=== PATIENT | female | born 1960 | race Caucasian/White ===

== ENCOUNTER 2021-03-27 12:07 | Outpatient (REF) | payer MEDICARE, MEDICAID, SELFPAY ==
[2021-03-27 12:38] LABS: Hematocrit 38.6 % (37-47); Hemoglobin 12.9 g/dl (12.0-16.0); Mean Corpuscular HGB Conc 33.4 g/dl (31.0-35.0); Mean Corpuscular Hemoglobin 30.3 pg (27.0-33.0); Mean Corpuscular Volume 90.6 fL (80-98); Mean Platelet Volume 10.1 fL (9.4-12.3); Platelet Count 255 X10*3/uL (160-400); Red Blood Count 4.26 X10*6/uL (4.20-5.50); Red Cell Distribution Width 14.4 % (11.0-16.0); White Blood Count 6.9 X10*3/uL (4.8-10.8)
[2021-03-27 13:24] LABS: Alanine Aminotransferase 13 U/L (0-31); Albumin Level 4.4 g/dL (3.5-5.0); Alkaline Phosphatase 55 U/L (39-117); Anion Gap 12 (12-20); Aspartate Amino Transferase 16 U/L (5-31); Bilirubin Total 0.3 mg/dL (0.0-1.0); Blood Urea Nitrogen 7 mg/dL (9-16); Calcium 9.5 mg/dL (8.4-10.2); Carbon Dioxide 26 mmol/L (22-29); Chloride 106 mmol/L (96-108); Cholesterol 184 mg/dL; Estimated Glomerular Filt Rate > 60; Glucose Fasting 97 mg/dL (60-99); HDL Cholesterol 48 mg/dL; LDL Cholesterol Calculated 122 mg/dl; Potassium 4.2 mmol/L (3.3-5.1); Sodium 140 mmol/L (135-145); Total Protein 6.7 g/dL (6.5-8.0); Triglycerides 73 mg/dL
[2021-03-27 13:43] LABS: TSH reflex Free T4 0.48 uIU/mL (0.32-4.0)
== END 2021-03-27 12:08 | disposition home or self-care (01) ==
LOC: HO.LAB 12:07
PROVIDERS: PCP Internal Medicine; Visit Provider Nurse Practitioner Family
DX: Z00.00 Encounter for general adult medical examination without abnormal findings (principal); Z13.1 Encounter for screening for diabetes mellitus; E78.00 Pure hypercholesterolemia, unspecified; F41.9 Anxiety disorder, unspecified
CPT/HCPCS: 36415; 80053; 80061; 84443; 85027

== ENCOUNTER 2022-12-31 08:52 | Outpatient (AMB) | payer MEDICARE, MEDICAID, SELFPAY ==
--- NOTE | 2022-12-31 08:54 | MHC.PC.OV ---
Vital Signs 12/31/22 08:56 Height 5 ft 6 in Weight 106 lb 8 oz BMI 17.2 BP 120/60 Blood Pressure Location Lt brachial Position Sitting Pulse 65 Pulse Source Pulse Oximeter Pulse Oximetry (%) 98 Oxygen Delivery Method Room Air Intake Visit Reasons: 3 month f/u Chronic conditions Intake Note: Patient is here to follow up on GERD. Closed Circuit Screen Watcher Required: No Cartridge Loader: Not Required per policy Accompanied by: Self / Same As Patient Allergies acetaminophen [From PERCOCET] Allergy (Unknown, Verified 12/31/22 08:55) RASH oxycodone [From PERCOCET] Allergy (Unknown, Verified 12/31/22 08:55) RASH Sulfa (Sulfonamide Antibiotics) [SULFA (SULFONAMIDE ANTIBIOTICS)] Allergy (Unknown, Verified 12/31/22 08:55) RASH clindamycin Allergy (Verified 12/31/22 08:55) Rash Tobacco use date assessed: 12/31/22 Dental Screening Dental Screen Date: 12/31/22 Did you have a dental visit in the last 12 months?: Yes Did you have a dental problem in the last 6 months where you did not have access to dental care?: No Was dental information given to patient?: Patient has dentist HPI 3 month f/u Chronic conditions HPI Details chronic anxiety and doing well; compliant [facility] Medical History (Updated 09/27/22 @ 09:51 by Shankar Montenegro MD) Anxiety Chronic GERD Surgical History H/O breast biopsy History of excision of lesion Family History (Updated 12/31/22 @ 08:54 by JACKY Merrill) Father Myocardial infarction Mother No problems noted. Family/Other Colon cancer Breast cancer Uterine cancer Paternal Aunt Breast cancer Social History Housing: Apartment Alcohol intake: never Patient Tobacco Use Status: Former Tobacco user e-Cigarette/Vaping Use: Never Used service: No Current occupational status: employed Current occupational exposures/hazards: No Cognitive needs: No Hearing needs: No Vision needs: No Questionnaire Thrive Questionnaire Date Thrive assessed: 09/27/22 MICHELLE-7 AMB Questionnaire MICHELLE-7 Date MICHELLE - 7 assessed: 09/27/22 Source: Developed by Drs. Sharif Keating, Kelly Torres, Hussein Britton and colleagues, with an educational nancie from [employer]. Review of Systems Const Denies chills, Denies headache(s) and Denies weight loss ENT Denies headache(s) Card Denies chest pain, Denies syncope, Denies irregular heart rhythm and Denies dyspnea Resp Denies chest congestion, Denies cough and Denies dyspnea GI Denies abdominal pain, Denies change in stool character, Denies nausea and Denies vomiting Musc Denies deformity and Denies joint swelling Neuro Denies syncope and Denies headache(s) Physical exam (Primary Care) Vital Signs: Last Vital Signs Pulse 65 12/31/22 08:56 BP 120/60 12/31/22 08:56 Pulse Ox 98 12/31/22 08:56 Oxygen Delivery Method Room Air 12/31/22 08:56 BMI result Body Mass Index 17.2 Tobacco/Smoking Status: Tobacco use Status Tobacco use date assessed 12/31/22 12/31/22 09:00 Patient Tobacco Use Status Former Tobacco user 12/31/22 09:00 e-Cigarette/Vaping Use Never Used 12/31/22 09:00 Thrive Assessment: Date of Thrive Assessment Date Thrive assessed 09/27/22 12/31/22 09:00 Const General: cooperative, comfortable and no acute distress Resp Effort & Inspection: normal respiratory effort Auscultation: clear to auscultation bilaterally Cardio Jugular venous distension: no JVD Rate: regular rate Rhythm: regular rhythm GI Inspection: Yes normal to inspection Assessment and Plan Assessment & Plan (1) Anxiety: Code(s): F41.9 - Anxiety disorder, unspecified Plan: stable; same rx Coding Level of Care Code Est Pt Level 3 (67632) Diagnoses Anxiety F41.9
[2022-12-31 08:56] VITALS: BP 120/60; PULSE 65; O2SAT 98; BMI 17.2
== END 2022-12-31 09:16 | disposition home or self-care (01) ==
PROVIDERS: Visit Provider Internal Medicine
DX: F41.9 Anxiety disorder, unspecified (principal)
CPT/HCPCS: 99213

== ENCOUNTER 2023-02-06 11:34 | Outpatient (REF) | payer MEDICARE, MEDICAID, SELFPAY ==
[2023-02-06 14:22] LABS: MANUAL DIFF FLAG NO
[2023-02-06 14:36] LABS: Basophils Absolute Auto 0.1 X10*3/uL (0.0-0.2); Basophils Percent Auto 0.8 % (0-2); Eosinophils Absolute Auto 0.1 X10*3/uL (0.0-0.4); Eosinophils Percent Auto 0.8 % (0-4); Hematocrit 37.3 % (37.0-47.0); Imm Gran Abs Auto 0.01 X10*3/uL (0.00-0.03); Imm Gran Pct Auto 0.2 % (0.0-0.4); Lymphocytes Percent Auto 33.2 % (20-40); Mean Corpuscular HGB Conc 34.9 g/dl (31.0-35.0); Mean Corpuscular Hemoglobin 31.1 pg (27.0-33.0); Mean Corpuscular Volume 89.2 fL (80.0-98.0); Mean Platelet Volume 10.6 fL (9.4-12.3); Monocytes Absolute Auto 0.4 X10*3/uL (0.1-1.2); Neutrophils Absolute Auto 3.6 x10*3/uL (2.0-8.3); Platelet Count 276 X10*3/uL (160-400); Red Blood Count 4.18 X10*6/uL (4.20-5.50); Red Cell Distribution Width 14.5 % (11.0-16.0); White Blood Count 6.1 X10*3/uL (4.8-10.8)
[2023-02-06 15:27] LABS: Alanine Aminotransferase 14 U/L (0-31); Albumin Level 4.5 g/dL (3.5-5.0); Alkaline Phosphatase 41 U/L (39-117); Anion Gap 13 (12-20); Aspartate Amino Transferase 18 U/L (5-31); Bilirubin Total 0.5 mg/dL (0.0-1.0); Blood Urea Nitrogen 3 mg/dL (9-16); Calcium 9.4 mg/dL (8.4-10.2); Carbon Dioxide 23 mmol/L (22-29); Chloride 103 mmol/L (96-108); Cholesterol 229 mg/dL; Estimated Glomerular Filt Rate > 60; Glucose Fasting 93 mg/dL (60-99); HDL Cholesterol 58 mg/dL; LDL Cholesterol Calculated 156 mg/dl; Potassium 3.5 mmol/L (3.3-5.1); Sodium 135 mmol/L (135-145); Total Protein 7.3 g/dL (6.5-8.0); Triglycerides 75 mg/dL
[2023-02-06 15:45] LABS: Thyroid Stimulating Hormone 0.59 uIU/mL (0.32-4.0)
[2023-02-07 11:44] LABS: Rubella IgG Antibody 5.34 Index; Rubeola IgG (Measles) >300.00 AU/mL
[2023-02-08 12:32] LABS: TS Negative Control Passed; TS Panel A 0; TS Panel B 0; TS Positive Control Passed; TSpotTB Negative (Negative)
== END 2023-02-06 11:35 | disposition home or self-care (01) ==
LOC: HO.WFDLDS 11:34
PROVIDERS: Visit Provider Internal Medicine
DX: Z00.00 Encounter for general adult medical examination without abnormal findings (principal); Z11.1 Encounter for screening for respiratory tuberculosis; E03.9 Hypothyroidism, unspecified; E78.5 Hyperlipidemia, unspecified; N28.9 Disorder of kidney and ureter, unspecified; D64.9 Anemia, unspecified
CPT/HCPCS: 36415; 80053; 80061; 84443; 85025; 86481; 86735; 86762; 86765

== ENCOUNTER 2023-02-15 09:46 | Outpatient (REF) | payer MEDICARE, MEDICAID, SELFPAY ==
[2023-02-16 04:13] LABS: ~Hepatitis B Surface Antibody NONREACTIVE (Nonreactive)
== END 2023-02-15 09:47 | disposition home or self-care (01) ==
LOC: HO.WFDLDS 09:46
PROVIDERS: Visit Provider Internal Medicine
DX: Z00.00 Encounter for general adult medical examination without abnormal findings (principal)
CPT/HCPCS: 36415; 86706

== ENCOUNTER 2023-05-10 08:33 | Outpatient (AMB) | payer MEDICARE, MEDICAID, SELFPAY ==
[2023-05-10 08:39] VITALS: BP 110/72; PULSE 66; O2SAT 93; BMI 16.6
--- NOTE | 2023-05-10 08:39 | MHC.PC.OV ---
Vital Signs 05/10/23 08:39 Height 5 ft 6 in Weight 103 lb BMI 16.6 BP 110/72 Blood Pressure Location Lt brachial Position Sitting Pulse 66 Pulse Source Pulse Oximeter Pulse Oximetry (%) 93 Oxygen Delivery Method Room Air Intake Visit Reasons: 4M. F/U Dry Janitor: Not Required per policy Accompanied by: Self / Same As Patient Allergies acetaminophen [From PERCOCET] Allergy (Unknown, Verified 05/10/23 08:39) RASH oxycodone [From PERCOCET] Allergy (Unknown, Verified 05/10/23 08:39) RASH Sulfa (Sulfonamide Antibiotics) [SULFA (SULFONAMIDE ANTIBIOTICS)] Allergy (Unknown, Verified 05/10/23 08:39) RASH clindamycin Allergy (Verified 05/10/23 08:39) Rash Medication List - Last Reconciled 05/10/23 by Shankar Montenegro MD compress.stocking,knee,reg,med As directed esomeprazole magnesium 40 mg PO DAILY ibuprofen 800 mg PO Q8H PRN lorazepam 1 mg PO TID PRN [lumbar pillow As directed] Tobacco use date assessed: 12/31/22 Dental Screening Dental Screen Date: 05/10/23 Did you have a dental visit in the last 12 months?: Yes Did you have a dental problem in the last 6 months where you did not have access to dental care?: No Was dental information given to patient?: Patient has dentist HPI 4M. F/U HPI Details anxiety on rx; doing well; compliant [facility] Medical History Chronic GERD Anxiety Surgical History History of excision of lesion H/O breast biopsy Family History Father Myocardial infarction Mother No problems noted. Family/Other Colon cancer Breast cancer Uterine cancer Paternal Aunt Breast cancer Social History Housing: Apartment Alcohol intake: never Patient Tobacco Use Status: Former Tobacco user e-Cigarette/Vaping Use: Never Used service: No Current occupational status: employed Current occupational exposures/hazards: No Cognitive needs: No Hearing needs: No Vision needs: No Questionnaire PHQ-9 Over the last 2 weeks, how often have you been bothered by any of the following problems? 1. Little interest or pleasure in doing things: not at all 2. Feeling down, depressed, or hopeless: several days 3. Trouble falling or staying asleep, or sleeping too much: not at all 4. Feeling tired or having little energy: not at all 5. Poor appetite or overeating: not at all 6. Feeling bad about yourself - or that you are a failure or have let yourself or your family down: not at all 7. Trouble concentrating on things, such as reading the newspaper or watching television: not at all 8. Moving or speaking so slowly that other people could have noticed. Or the opposite - being so fidgety or restless that you have been moving around a lot more than usual: not at all 9. Thoughts that you would be better off or of hurting yourself in some way: not at all Total score: 1 Depression Screening Interpretation: Negative Depression Screening Done: Yes 56160 - PHQ-9 Billing: Yes Source: Developed by Drs. Sharif Keating, Kelly Torres, Hussein Britton and colleagues, with an educational nancie from [employer]. Thrive Questionnaire Date Thrive assessed: 09/27/22 AUDIT C Alcohol Use Questionnaire (AUDIT-C) 1. How often do you have a drink containing alcohol?: Never Total Score: 0 Score Reviewed/Action Taken: Yes MICHELLE-7 AMB Questionnaire MICHELLE-7 Date MICHELLE - 7 assessed: 09/27/22 Source: Developed by Drs. Sharif Keating, Kelly Torres, Hussein Britton and colleagues, with an educational nancie from [employer]. Review of Systems Const Denies chills, Denies headache(s) and Denies weight loss ENT Denies headache(s) Card Denies chest pain, Denies syncope, Denies irregular heart rhythm and Denies dyspnea Resp Denies chest congestion, Denies cough and Denies dyspnea GI Denies abdominal pain, Denies change in stool character, Denies nausea and Denies vomiting Musc Denies deformity and Denies joint swelling Neuro Denies syncope and Denies headache(s) Physical exam (Primary Care) Vital Signs: Last Vital Signs Pulse 66 05/10/23 08:39 BP 110/72 05/10/23 08:39 Pulse Ox 93 05/10/23 08:39 Oxygen Delivery Method Room Air 05/10/23 08:39 BMI result Body Mass Index 16.6 Tobacco/Smoking Status: Tobacco use Status Tobacco use date assessed 12/31/22 05/10/23 08:42 Patient Tobacco Use Status Former Tobacco user 05/10/23 08:42 e-Cigarette/Vaping Use Never Used 05/10/23 08:42 PHQ-9: PHQ-9 Score PHQ-9: Total score 1 05/10/23 08:42 Depression Screening Interpretation: Negative Thrive Assessment: Date of Thrive Assessment Date Thrive assessed 09/27/22 05/10/23 08:42 Const General: cooperative, comfortable, no acute distress and alert Neck Neck: Yes no lymphadenopathy Thyroid: Thyroid normal Resp Effort & Inspection: normal respiratory effort Auscultation: clear to auscultation bilaterally Percussion: percussion normal Cardio Jugular venous distension: no JVD Palpation: normal PMI Rate: regular rate Rhythm: regular rhythm Heart sounds: S1 normal heart sound present and S2 normal heart sound present GI Inspection: Yes normal to inspection Palpation (GI): No hepatosplenomegaly present Skin General skin exam: no rashes or lesions noted Extrem General: Yes no clubbing, cyanosis or edema Assessment and Plan Assessment & Plan (1) Anxiety: Code(s): F41.9 - Anxiety disorder, unspecified Plan: stable; same rx Coding Level of Care Code Est Pt Level 3 (72679) Diagnoses Anxiety F41.9
== END 2023-05-10 08:57 | disposition home or self-care (01) ==
PROVIDERS: PCP Internal Medicine; Visit Provider Internal Medicine
DX: F41.9 Anxiety disorder, unspecified (principal)
CPT/HCPCS: 99213

== ENCOUNTER 2023-09-05 08:59 | Outpatient (AMB) | payer MEDICARE, MEDICAID, SELFPAY ==
[2023-09-05 09:00] VITALS: BP 114/70; PULSE 71; O2SAT 96; BMI 16.6
--- NOTE | 2023-09-05 09:00 | MHC.PC.OV ---
Vital Signs 09/05/23 09:00 Height 5 ft 6 in Weight 103 lb BMI 16.6 BP 114/70 Blood Pressure Location Lt brachial Position Sitting Pulse 71 Pulse Source Pulse Oximeter Pulse Oximetry (%) 96 Oxygen Delivery Method Room Air Intake Visit Reasons: back pain Water Technician Required: No Health Commissioner: Not Required per policy Accompanied by: Self / Same As Patient Allergies acetaminophen [From PERCOCET] Allergy (Unknown, Verified 09/05/23 09:01) RASH oxycodone [From PERCOCET] Allergy (Unknown, Verified 09/05/23 09:01) RASH Sulfa (Sulfonamide Antibiotics) [SULFA (SULFONAMIDE ANTIBIOTICS)] Allergy (Unknown, Verified 09/05/23 09:01) RASH clindamycin Allergy (Verified 09/05/23 09:01) Rash Tobacco use date assessed: 09/05/23 Dental Screening Dental Screen Date: 09/05/23 Did you have a dental visit in the last 12 months?: Yes Did you have a dental problem in the last 6 months where you did not have access to dental care?: No Was dental information given to patient?: Patient has dentist HPI back pain HPI Details lower back pain for years getting worse; left and right paralumbar PFSH Medical History Chronic GERD Anxiety Surgical History History of excision of lesion H/O breast biopsy Family History Father Myocardial infarction Mother No problems noted. Family/Other Colon cancer Breast cancer Uterine cancer Paternal Aunt Breast cancer Social History Housing: Apartment Alcohol intake: never Patient Tobacco Use Status: Former Tobacco user e-Cigarette/Vaping Use: Never Used service: No Current occupational status: employed Current occupational exposures/hazards: No Cognitive needs: No Hearing needs: No Vision needs: Yes (glasses) Questionnaire PHQ-9 Over the last 2 weeks, how often have you been bothered by any of the following problems? 1. Little interest or pleasure in doing things: not at all 2. Feeling down, depressed, or hopeless: not at all 3. Trouble falling or staying asleep, or sleeping too much: not at all 4. Feeling tired or having little energy: not at all 5. Poor appetite or overeating: not at all 6. Feeling bad about yourself - or that you are a failure or have let yourself or your family down: not at all 7. Trouble concentrating on things, such as reading the newspaper or watching television: not at all 8. Moving or speaking so slowly that other people could have noticed. Or the opposite - being so fidgety or restless that you have been moving around a lot more than usual: not at all 9. Thoughts that you would be better off or of hurting yourself in some way: not at all Total score: 0 Depression Screening Interpretation: Negative Depression Screening Done: Yes 06944 - PHQ-9 Billing: Yes Source: Developed by Drs. Sharif Keating, Kelly Torres, Hussein Britton and colleagues, with an educational nancie from [employer]. Thrive Questionnaire Date Thrive assessed: 09/05/23 I am a: Patient What is your living situation today?: I have a steady place to live Within the past 12 months, did the food you bought not last and you didn't have the money to get more?: Never true Within the past 12 months, did you worry whether your food would run out before you got money to buy more?: Never true Do you have trouble paying for medicines?: No Do you have trouble getting transportation to medical appointments?: No Do you have trouble paying your heating and electricity bill?: No Do you have trouble taking care of your child, family member or friend?: No Do you have trouble with day-to-day activities such as bathing, preparing meals, shopping, managing finances, etc.?: No Are you currently unemployed and looking for a job?: No Are you interested in more education?: No Please select the resources that you would like help with: None THRIVE Score: 0 AUDIT C Alcohol Use Questionnaire (AUDIT-C) 1. How often do you have a drink containing alcohol?: Never Total Score: 0 Score Reviewed/Action Taken: Yes MICHELLE-7 AMB Questionnaire MICHELLE-7 Date MICHELLE - 7 assessed: 09/05/23 Feeling nervous, anxious, or on edge: 0 = Not at all Not being able to stop or control worryin = Not at all Worrying too much about different things: 0 = Not at all Trouble relaxin = Not at all Being so restless that it is hard to sit still: 0 = Not at all Becoming easily annoyed or irritable: 0 = Not at all Feeling afraid as if something awful might happen: 0 = Not at all Total MICHELLE-7 score (0-4 normal; 5-9 mild; 10-14 moderate; 15-21 severe): 0 Source: Developed by Drs. Sharif Keating, Kelly Torres, Hussein Britton and colleagues, with an educational nancie from [employer]. MICHELLE-7 Assessment Billing MICHELLE-7 Assessment Tool: MICHELLE-7 Assessment 27291 Review of Systems Const Denies chills, Denies headache(s) and Denies weight loss ENT Denies headache(s) Card Denies chest pain, Denies syncope, Denies irregular heart rhythm and Denies dyspnea Resp Denies chest congestion, Denies cough and Denies dyspnea GI Denies abdominal pain, Denies change in stool character, Denies nausea and Denies vomiting Musc Denies deformity and Denies joint swelling Neuro Denies syncope and Denies headache(s) Physical exam (Primary Care) Vital Signs: Last Vital Signs Pulse 71 09/05/23 09:00 BP 114/70 09/05/23 09:00 Pulse Ox 96 09/05/23 09:00 Oxygen Delivery Method Room Air 09/05/23 09:00 BMI result Body Mass Index 16.6 Tobacco/Smoking Status: Tobacco use Status Tobacco use date assessed 09/05/23 09/05/23 09:05 Patient Tobacco Use Status Former Tobacco user 09/05/23 09:05 e-Cigarette/Vaping Use Never Used 09/05/23 09:05 PHQ-9: PHQ-9 Score PHQ-9: Total score 0 09/05/23 09:05 Depression Screening Interpretation: Negative Thrive Assessment: Date of Thrive Assessment Date Thrive assessed 09/05/23 09/05/23 09:05 Const General: cooperative, comfortable, no acute distress and alert Neck Neck: Yes no lymphadenopathy Thyroid: Thyroid normal Resp Effort & Inspection: normal respiratory effort Auscultation: clear to auscultation bilaterally Percussion: percussion normal Cardio Jugular venous distension: no JVD Palpation: normal PMI Rate: regular rate Rhythm: regular rhythm Heart sounds: S1 normal heart sound present and S2 normal heart sound present GI Inspection: Yes normal to inspection Palpation (GI): No hepatosplenomegaly present Skin General skin exam: no rashes or lesions noted Extrem General: Yes no clubbing, cyanosis or edema Assessment and Plan Assessment & Plan (1) Low back pain: Code(s): M54.50 - Low back pain, unspecified Plan: xr and pt Orders: Orders PT Evaluation and Treatment Today M54.50 - Low back pain, unspecified XR lumbar spine 2-3V Today M54.9 - Dorsalgia, unspecified Coding Level of Care Code Est Pt Level 3 (20583) Diagnoses Low back pain M54.50 Additional Codes MICHELLE-7 Assessment Billing - MICHELLE-7 Assessment Tool: MICHELLE-7 Assessment 68377 ([id number])
== END 2023-09-05 09:15 | disposition home or self-care (01) ==
PROVIDERS: PCP Internal Medicine; Visit Provider Internal Medicine
DX: M54.50 Low back pain, unspecified (principal)
CPT/HCPCS: 99213

== ENCOUNTER 2023-10-11 09:17 | Outpatient (AMB) | payer MEDICARE, MEDICAID, SELFPAY ==
[2023-10-11 09:19] VITALS: BP 130/78; PULSE 76; O2SAT 99; BMI 16.5
--- NOTE | 2023-10-11 09:19 | A.OFFPC_ITS ---
Vital Signs 10/11/23 09:19 Height 5 ft 6 in Weight 102 lb BMI 16.5 BP 130/78 Blood Pressure Location Lt brachial Position Sitting Pulse 76 Pulse Source Pulse Oximeter Pulse Oximetry (%) 99 Oxygen Delivery Method Room Air Intake Visit Reasons: X Ray results, Blood work results, Possible PT ref Senior Software Qa Engineer Required: No Felt Washing Machine Tender: Not Required per policy Accompanied by: Self / Same As Patient Allergies acetaminophen [From PERCOCET] Allergy (Unknown, Verified 10/11/23 09:20) RASH oxycodone [From PERCOCET] Allergy (Unknown, Verified 10/11/23 09:20) RASH Sulfa (Sulfonamide Antibiotics) [SULFA (SULFONAMIDE ANTIBIOTICS)] Allergy (Unknown, Verified 10/11/23 09:20) RASH clindamycin Allergy (Verified 10/11/23 09:20) Rash Medication List - Last Reconciled 10/11/23 by Shankar Montenegro MD compress.stocking,knee,reg,med As directed esomeprazole magnesium 40 mg PO DAILY ibuprofen 800 mg PO Q8H PRN lorazepam 1 mg PO TID PRN [lumbar pillow As directed] Tobacco use date assessed: 09/05/23 Dental Screening Dental Screen Date: 09/05/23 HPI X Ray results, Blood work results, Possible PT ref HPI Details low back pain due to DJD PFSH Medical History Chronic GERD Anxiety Surgical History History of excision of lesion H/O breast biopsy Family History Father Myocardial infarction Mother No problems noted. Family/Other Colon cancer Breast cancer Uterine cancer Paternal Aunt Breast cancer Social History Housing: Apartment Alcohol intake: never Patient Tobacco Use Status: Former Tobacco user e-Cigarette/Vaping Use: Never Used service: No Current occupational status: employed Current occupational exposures/hazards: No Cognitive needs: No Hearing needs: No Vision needs: Yes (glasses) Questionnaire Thrive Questionnaire Date Thrive assessed: 09/05/23 MICHELLE-7 AMB Questionnaire MICHELLE-7 Date MICHELLE - 7 assessed: 09/05/23 Source: Developed by Drs. Sharif Keating, Kelly Torres, Hussein Britton and colleagues, with an educational nancie from [employer]. Review of Systems Const Denies chills, Denies headache(s) and Denies weight loss ENT Denies headache(s) Card Denies chest pain, Denies syncope, Denies irregular heart rhythm and Denies dyspnea Resp Denies chest congestion, Denies cough and Denies dyspnea GI Denies abdominal pain, Denies change in stool character, Denies nausea and Denies vomiting Musc Denies deformity and Denies joint swelling Neuro Denies syncope and Denies headache(s) Physical exam (Primary Care) Vital Signs: Last Vital Signs Pulse 76 10/11/23 09:19 BP 130/78 10/11/23 09:19 Pulse Ox 99 10/11/23 09:19 Oxygen Delivery Method Room Air 10/11/23 09:19 BMI result Body Mass Index 16.5 Tobacco/Smoking Status: Tobacco use Status Tobacco use date assessed 09/05/23 10/11/23 09:20 Patient Tobacco Use Status Former Tobacco user 10/11/23 09:20 e-Cigarette/Vaping Use Never Used 10/11/23 09:20 Thrive Assessment: Date of Thrive Assessment Date Thrive assessed 09/05/23 10/11/23 09:20 Const General: cooperative, comfortable, no acute distress and alert Neck Neck: Yes no lymphadenopathy Thyroid: Thyroid normal Resp Effort & Inspection: normal respiratory effort Auscultation: clear to auscultation bilaterally Percussion: percussion normal Cardio Jugular venous distension: no JVD Palpation: normal PMI Rate: regular rate Rhythm: regular rhythm Heart sounds: S1 normal heart sound present and S2 normal heart sound present GI Inspection: Yes normal to inspection Palpation (GI): No hepatosplenomegaly present Skin General skin exam: no rashes or lesions noted Extrem General: Yes no clubbing, cyanosis or edema Assessment and Plan Assessment & Plan (1) Low back pain: Code(s): M54.50 - Low back pain, unspecified Plan: PT ref Orders: Orders PT Evaluation and Treatment Today M54.50 - Low back pain, unspecified Coding Level of Care Code Est Pt Level 3 (30277) Diagnoses Low back pain M54.50
== END 2023-10-11 09:35 | disposition home or self-care (01) ==
PROVIDERS: PCP Internal Medicine; Visit Provider Internal Medicine
DX: M54.50 Low back pain, unspecified (principal)
CPT/HCPCS: 99213

== ENCOUNTER 2023-12-17 09:41 | Outpatient (AMB) | payer MEDICARE, MEDICAID, SELFPAY ==
[2023-12-17 09:42] VITALS: BP 100/64; PULSE 85; O2SAT 95; BMI 16.5
--- NOTE | 2023-12-17 09:42 | A.OFFPC_ITS ---
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 Electrical: Not Required per policy Accompanied by: Self / Same As Patient Allergies acetaminophen [From PERCOCET] Allergy (Unknown, Verified 12/17/23 09:43) RASH oxycodone [From PERCOCET] Allergy (Unknown, Verified 12/17/23 09:43) RASH Sulfa (Sulfonamide Antibiotics) [SULFA (SULFONAMIDE ANTIBIOTICS)] Allergy (Unknown, Verified 12/17/23 09:43) RASH clindamycin Allergy (Verified 12/17/23 09:43) Rash Medication List - Last Reconciled 12/17/23 by Shankar Montenegro MD compress.stocking,knee,reg,med As directed esomeprazole magnesium 40 mg PO DAILY ibuprofen 800 mg PO Q8H PRN lorazepam 1 mg PO TID PRN [lumbar pillow As directed] Tobacco use date assessed: 09/05/23 Dental Screening Dental Screen Date: 09/05/23 HPI 6 month f/u HPI Details chronic anxiety; doing well; due for labs PFSH Medical History Chronic GERD Anxiety Surgical History History of excision of lesion H/O breast biopsy Family History Father Myocardial infarction Mother No problems noted. Family/Other Colon cancer Breast cancer Uterine cancer Paternal Aunt Breast cancer Social History Housing: Apartment Alcohol intake: never Patient Tobacco Use Status: Former Tobacco user e-Cigarette/Vaping Use: Never Used service: No Current occupational status: employed Current occupational exposures/hazards: No Cognitive needs: No Hearing needs: No Vision needs: Yes (glasses) Questionnaire Thrive Questionnaire Date Thrive assessed: 09/05/23 MICHELLE-7 AMB Questionnaire MICHELLE-7 Date MICHELLE - 7 assessed: 09/05/23 Source: Developed by Drs. Sharif Keating, Kelly Torres, Hussein Britton and colleagues, with an educational nancie from [employer]. Review of Systems Const Denies chills, Denies headache(s) and Denies weight loss ENT Denies headache(s) Card Denies chest pain, Denies syncope, Denies irregular heart rhythm and Denies dyspnea Resp Denies chest congestion, Denies cough and Denies dyspnea GI Denies abdominal pain, Denies change in stool character, Denies nausea and Denies vomiting Musc Denies deformity and Denies joint swelling Neuro Denies syncope and Denies headache(s) Physical exam (Primary Care) Vital Signs: Last Vital Signs Pulse 85 12/17/23 09:42 BP 100/64 12/17/23 09:42 Pulse Ox 95 12/17/23 09:42 Oxygen Delivery Method Room Air 12/17/23 09:42 BMI result Body Mass Index 16.5 Tobacco/Smoking Status: Tobacco use Status Tobacco use date assessed 09/05/23 12/17/23 09:46 Patient Tobacco Use Status Former Tobacco user 12/17/23 09:46 e-Cigarette/Vaping Use Never Used 12/17/23 09:46 Thrive Assessment: Date of Thrive Assessment Date Thrive assessed 09/05/23 12/17/23 09:46 Const General: cooperative, comfortable, no acute distress and alert Neck Neck: Yes no lymphadenopathy Thyroid: Thyroid normal Resp Effort & Inspection: normal respiratory effort Auscultation: clear to auscultation bilaterally Percussion: percussion normal Cardio Jugular venous distension: no JVD Palpation: normal PMI Rate: regular rate Rhythm: regular rhythm Heart sounds: S1 normal heart sound present and S2 normal heart sound present GI Inspection: Yes normal to inspection Palpation (GI): No hepatosplenomegaly present Skin General skin exam: no rashes or lesions noted Extrem General: Yes no clubbing, cyanosis or edema Assessment and Plan Assessment & Plan (1) Anxiety: Code(s): F41.9 - Anxiety disorder, unspecified Plan: stable; same rx Orders: Orders Complete Blood Count Auto Diff Today Z13.0 - Encounter for screening for diseases of the blood and blood-forming organs and certain disorders involving the immune mechanism Lipid Panel Today Z13.220 - Encounter for screening for lipoid disorders Thyroid Stimulating Hormone Today Z13.29 - Encounter for screening for other suspected endocrine disorder Comprehensive [place]. Panel Fast Today Z13.9 - Encounter for screening, unspecified Coding Level of Care Code Est Pt Level 3 (58615) Diagnoses Anxiety F41.9
== END 2023-12-17 10:03 | disposition home or self-care (01) ==
PROVIDERS: PCP Internal Medicine; Visit Provider Internal Medicine
DX: F41.9 Anxiety disorder, unspecified (principal)
CPT/HCPCS: 99213

== ENCOUNTER 2023-12-19 07:00 | Outpatient (RCR) | payer MEDICARE, MEDICAID, SELFPAY ==
--- NOTE | 2023-12-09 13:46 | MHC.PT.EP ---
[facility] [place] Office [place] Office [place] Office [address] [phone] F: [phone] F: [phone] F: [phone] F: [phone] Physical Therapy Plan of Care Date of Evaluation: 12/03/23 Date of Surgery: Diagnosis: low back pain Assessment: Pt is a 63yo female who presents with worsening low back pain. Lumbar instability due to core weakness and poor body mechanics noted on eval. Skilled PT indicated to reduce pain, promote core/hip strengthening to enable her to maintain improved posture and body mechanics during all functional tasks. Pt in agreement with POC and is motivated to participate. Frequency and Duration: The patient will be seen 2x/week x 4 weeks Short Term Goals: 1. In 2 weeks, patient will be I with daily stretching for L ankle and phase 1 lumbar stab exercises. Group Home Goals: 1. In 4 weeks, patient will report no increased low back pain when washing dishes x 15 minutes. 2. In 4 weeks the BETTY score will improve by 25% indicating reduced pain and overall improvement in function. Treatment Plan: Modalities to reduce pain, spasms and effusion. Manual therapy to restore motion and function. Therapeutic exercise to improve strength and flexibility. Neuromuscular re-education for posture and balance. Therapeutic activities to return to functional activities of daily living. Electronically signed by: Tawanna Gaytan PT, DPT Please sign and return to therapist. Thank you for your referral.
== END 2024-05-04 08:20 | disposition home or self-care (01) ==
LOC: HO.PTWFD 07:00
PROVIDERS: PCP Internal Medicine; Visit Provider Internal Medicine
DX: M54.50 Low back pain, unspecified (principal)
CPT/HCPCS: 97110; 97161; 97530

== ENCOUNTER 2024-06-02 08:10 | Outpatient (REF) | payer MEDICARE, MEDICAID, SELFPAY ==
[2024-06-02 11:36] LABS: MANUAL DIFF FLAG NO
[2024-06-02 11:51] LABS: Basophils Absolute Auto 0.1 X10*3/uL (0.0-0.2); Basophils Percent Auto 0.7 % (0-2); Eosinophils Absolute Auto 0.1 X10*3/uL (0.0-0.4); Eosinophils Percent Auto 1.7 % (0-4); Hematocrit 38.8 % (37.0-47.0); Hemoglobin 13.3 g/dl (12.0-16.0); Imm Gran Abs Auto 0.02 X10*3/uL (0.00-0.03); Imm Gran Pct Auto 0.3 % (0.0-0.4); Lymphocytes Absolute Auto 2.3 X10*3/uL (1.2-4.9); Lymphocytes Percent Auto 32.8 % (20-40); Mean Corpuscular HGB Conc 34.3 g/dl (31.0-35.0); Mean Corpuscular Hemoglobin 31.1 pg (27.0-33.0); Mean Corpuscular Volume 90.7 fL (80.0-98.0); Mean Platelet Volume 10.9 fL (9.4-12.3); Monocytes Absolute Auto 0.5 X10*3/uL (0.1-1.2); Monocytes Percent Auto 6.5 % (2-11); Neutrophils Absolute Auto 4.1 x10*3/uL (2.0-8.3); Platelet Count 264 X10*3/uL (160-400); Red Blood Count 4.28 X10*6/uL (4.20-5.50); Red Cell Distribution Width 14.6 % (11.0-16.0); White Blood Count 7.1 X10*3/uL (4.8-10.8)
[2024-06-02 12:39] LABS: Alanine Aminotransferase 16 U/L (0-31); Albumin Level 4.5 g/dL (3.5-5.0); Alkaline Phosphatase 46 U/L (39-117); Anion Gap 17 (12-20); Aspartate Amino Transferase 21 U/L (5-31); Bilirubin Total 0.5 mg/dL (0.0-1.0); Blood Urea Nitrogen 6 mg/dL (9-16); Calcium 9.2 mg/dL (8.4-10.2); Carbon Dioxide 25 mmol/L (22-29); Chloride 97 mmol/L (96-108); Cholesterol 239 mg/dL (<200); Estimated Glomerular Filt Rate > 60; Glucose Fasting 97 mg/dL (60-99); HDL Cholesterol 61 mg/dL (>40); LDL Cholesterol Calculated 162 mg/dL (<100); Potassium 3.9 mmol/L (3.3-5.1); Sodium 135 mmol/L (135-145); Thyroid Stimulating Hormone 0.39 uIU/mL (0.32-4.0); Total Protein 7.3 g/dL (6.5-8.0); Triglycerides 80 mg/dL (<150)
== END 2024-06-02 08:11 | disposition home or self-care (01) ==
LOC: HO.WFDLDS 08:10
PROVIDERS: Visit Provider Internal Medicine
DX: Z13.9 Encounter for screening, unspecified (principal); Z13.0 Encounter for screening for diseases of the blood and blood-forming organs and certain disorders involving the immune mechanism; Z13.220 Encounter for screening for lipoid disorders; Z13.29 Encounter for screening for other suspected endocrine disorder
CPT/HCPCS: 36415; 80053; 80061; 84443; 85025

== ENCOUNTER 2024-06-19 08:24 | Outpatient (AMB) | payer MEDICARE, MEDICAID, SELFPAY ==
--- NOTE | 2024-06-19 08:25 | A.OFFPC_ITS ---
Intake Visit Reasons: 6mth f/u Allergies acetaminophen [From PERCOCET] Allergy (Unknown, Verified 06/19/24 08:27) RASH oxycodone [From PERCOCET] Allergy (Unknown, Verified 06/19/24 08:27) RASH Sulfa (Sulfonamide Antibiotics) [SULFA (SULFONAMIDE ANTIBIOTICS)] Allergy (Unknown, Verified 06/19/24 08:27) RASH clindamycin Allergy (Verified 06/19/24 08:27) Rash Medication List - Last Reconciled 06/19/24 by Shankar Montenegro MD compress.stocking,knee,reg,med As directed esomeprazole magnesium 40 mg PO DAILY ibuprofen 800 mg PO Q8H PRN lorazepam 1 mg PO TID PRN [lumbar pillow As directed] Tobacco use date assessed: 06/19/24 Dental Screening Dental Screen Date: 09/05/23 HPI 6mth f/u HPI Details chronic anxiety on rx; compliant PFSH Medical History Chronic GERD Anxiety Surgical History History of excision of lesion H/O breast biopsy Family History Father Myocardial infarction Mother No problems noted. Family/Other Colon cancer Breast cancer Uterine cancer Paternal Aunt Breast cancer Social History Housing: Apartment Alcohol intake: never Patient Tobacco Use Status: Former Tobacco user Tobacco use type: Cigarette e-Cigarette/Vaping Use: Never Used Second Hand Smoke Exposure: No service: No Current occupational status: employed Current occupational exposures/hazards: No Cognitive needs: No Hearing needs: No Vision needs: Yes (glasses) Questionnaire PHQ-9 Over the last 2 weeks, how often have you been bothered by any of the following problems? 1. Little interest or pleasure in doing things: not at all 2. Feeling down, depressed, or hopeless: not at all 3. Trouble falling or staying asleep, or sleeping too much: not at all 4. Feeling tired or having little energy: not at all 5. Poor appetite or overeating: not at all 6. Feeling bad about yourself - or that you are a failure or have let yourself or your family down: not at all 7. Trouble concentrating on things, such as reading the newspaper or watching television: not at all 8. Moving or speaking so slowly that other people could have noticed. Or the opposite - being so fidgety or restless that you have been moving around a lot more than usual: not at all 9. Thoughts that you would be better off or of hurting yourself in some way: not at all Total score: 0 Depression Screening Interpretation: Negative Depression Screening Done: Yes 99256 - PHQ-9 Billing: Yes Source: Developed by Drs. Sharif Keating, Kelly Torres, Hussein Britton and colleagues, with an educational nancie from [employer]. Thrive Questionnaire Date Thrive assessed: 09/05/23 AUDIT C Alcohol Use Questionnaire (AUDIT-C) 3. How often do you have six or more drinks on one occasion?: Never Total Score: 0 MICHELLE-7 AMB Questionnaire MICHELLE-7 Date MICHELLE - 7 assessed: 09/05/23 Source: Developed by Drs. Sharif Keating, Kelly Torres, Hussein Britton and colleagues, with an educational nancie from [employer]. Review of Systems Const Denies chills, Denies headache(s) and Denies weight loss ENT Denies headache(s) Card Denies chest pain, Denies syncope, Denies irregular heart rhythm and Denies dyspnea Resp Denies chest congestion, Denies cough and Denies dyspnea GI Denies abdominal pain, Denies change in stool character, Denies nausea and Denies vomiting Musc Denies deformity and Denies joint swelling Neuro Denies syncope and Denies headache(s) Physical exam (Primary Care) Tobacco/Smoking Status: Tobacco use Status Tobacco use date assessed 06/19/24 06/19/24 08:28 Patient Tobacco Use Status Former Tobacco user 06/19/24 08:28 Tobacco use type Cigarette 06/19/24 08:28 e-Cigarette/Vaping Use Never Used 06/19/24 08:28 PHQ-9: PHQ-9 Score PHQ-9: Total score 0 06/19/24 08:28 Depression Screening Interpretation: Negative Thrive Assessment: Date of Thrive Assessment Date Thrive assessed 09/05/23 06/19/24 08:28 Telehealth Telehealth Location of provider rendering services: practice address Location of patient: address on file Patient Identification confirmed using: Name, : Yes Telehealth method: voice only Patient verbally consented to treatment: Yes Patient verbally consented to billing insurance company: Yes Patient informed of any privacy concerns related to visit: Yes Minutes spent on Phone/Video with Pt.: 15 (telephone) Coding Level of Care Code Tele Est Pt Level 3 (97368) Diagnoses Anxiety F41.9 Additional Codes PHQ-9 - 27274 - PHQ-9 Billing: Yes ([id number]) Assessment & Plan Assessment & Plan (1) Anxiety: Code(s): F41.9 - Anxiety disorder, unspecified Category: Medical Plan: stable; same rx
== END 2024-06-19 12:13 | disposition home or self-care (01) ==
LOC: HO.HMCH 08:24
PROVIDERS: PCP Internal Medicine; Visit Provider Internal Medicine
DX: F41.9 Anxiety disorder, unspecified (principal)

== ENCOUNTER → 2024-06-19 08:24 | Outpatient (BNVA) | payer MEDICARE, MEDICAID, SELFPAY | PROVIDERS: PCP Internal Medicine; Visit Provider Internal Medicine | DX: F41.9 Anxiety disorder, unspecified (principal) | CPT/HCPCS: 96127 ==

== ENCOUNTER 2024-07-23 09:17 | Outpatient (AMB) | payer MEDICARE, MEDICAID, SELFPAY ==
--- NOTE | 2024-07-23 09:19 | A.OFFPC_ITS ---
Vital Signs 07/23/24 09:20 Height 5 ft 6 in Weight 104 lb BMI 16.8 BP 136/78 Blood Pressure Location Lt brachial Position Sitting Pulse 80 Pulse Source Pulse Oximeter Temp 97.1 F Temp Source Temporal Artery Scan Pulse Oximetry (%) 97 Oxygen Delivery Method Room Air Intake Visit Reasons: Paperwork Concern Intake Note: Patient here c/o back pain, letter for apartment to have carpet removed Rehabilitation Therapy Technician Required: No Accompanied by: Self / Same As Patient Allergies acetaminophen [From PERCOCET] Allergy (Unknown, Verified 07/23/24 09:27) RASH oxycodone [From PERCOCET] Allergy (Unknown, Verified 07/23/24 09:27) RASH Sulfa (Sulfonamide Antibiotics) [SULFA (SULFONAMIDE ANTIBIOTICS)] Allergy (Unknown, Verified 07/23/24 09:27) RASH clindamycin Allergy (Verified 07/23/24 09:27) Rash Medication List - Last Reconciled 07/23/24 by Shankar Montenegro MD compress.stocking,knee,reg,med As directed esomeprazole magnesium 40 mg PO DAILY ibuprofen 800 mg PO Q8H PRN lorazepam 1 mg PO TID PRN [lumbar pillow As directed] Tobacco use date assessed: 07/23/24 Dental Screening Dental Screen Date: 07/23/24 Did you have a dental visit in the last 12 months?: No Did you have a dental problem in the last 6 months where you did not have access to dental care?: No Was dental information given to patient?: Patient has dentist HPI Paperwork Concern HPI Details right sided low back pain worsening for a month PFSH Medical History Chronic GERD Anxiety Surgical History History of excision of lesion H/O breast biopsy Family History Father Myocardial infarction Mother No problems noted. Family/Other Colon cancer Breast cancer Uterine cancer Paternal Aunt Breast cancer Social History Housing: Apartment Alcohol intake: never Patient Tobacco Use Status: Former Tobacco user Tobacco use type: Cigarette e-Cigarette/Vaping Use: Never Used Second Hand Smoke Exposure: No service: No Current occupational status: employed Current occupational exposures/hazards: No Cognitive needs: No Hearing needs: No Vision needs: Yes (glasses) Questionnaire PHQ-9 Over the last 2 weeks, how often have you been bothered by any of the following problems? 1. Little interest or pleasure in doing things: not at all 2. Feeling down, depressed, or hopeless: not at all 3. Trouble falling or staying asleep, or sleeping too much: not at all 4. Feeling tired or having little energy: not at all 5. Poor appetite or overeating: not at all 6. Feeling bad about yourself - or that you are a failure or have let yourself or your family down: not at all 7. Trouble concentrating on things, such as reading the newspaper or watching television: not at all 8. Moving or speaking so slowly that other people could have noticed. Or the opposite - being so fidgety or restless that you have been moving around a lot more than usual: not at all 9. Thoughts that you would be better off or of hurting yourself in some way: not at all Total score: 0 Depression Screening Interpretation: Negative Depression Screening Done: Yes Source: Developed by Drs. Sharif Keating, Kelly Torres, Hussein Britton and colleagues, with an educational nancie from [employer]. Thrive Questionnaire Date Thrive assessed: 07/23/24 I am a: Patient What is your living situation today?: I have a steady place to live Within the past 12 months, did the food you bought not last and you didn't have the money to get more?: Never true Within the past 12 months, did you worry whether your food would run out before you got money to buy more?: Never true Do you have trouble paying for medicines?: No Do you have trouble getting transportation to medical appointments?: No Do you have trouble paying your heating and electricity bill?: No Do you have trouble taking care of your child, family member or friend?: No Do you have trouble with day-to-day activities such as bathing, preparing meals, shopping, managing finances, etc.?: No Are you currently unemployed and looking for a job?: No Are you interested in more education?: No Please select the resources that you would like help with: None Currently or been in a relationship where the following occur: No concerns reported THRIVE Score: 0 AUDIT C Alcohol Use Questionnaire (AUDIT-C) 1. How often do you have a drink containing alcohol?: Never Total Score: 0 MICHELLE-7 AMB Questionnaire MICHELLE-7 Date MICHELLE - 7 assessed: 07/23/24 Feeling nervous, anxious, or on edge: 1 = Several days Not being able to stop or control worryin = Not at all Worrying too much about different things: 1 = Several days Trouble relaxin = Not at all Being so restless that it is hard to sit still: 0 = Not at all Becoming easily annoyed or irritable: 0 = Not at all Feeling afraid as if something awful might happen: 0 = Not at all Total MIHCELLE-7 score (0-4 normal; 5-9 mild; 10-14 moderate; 15-21 severe): 2 Source: Developed by Drs. Sharif Keating, Kelly Torres, Hussein Britton and colleagues, with an educational nancie from [employer]. Review of Systems Const Denies chills, Denies headache(s) and Denies weight loss ENT Denies headache(s) Card Denies chest pain, Denies syncope, Denies irregular heart rhythm and Denies dyspnea Resp Denies chest congestion, Denies cough and Denies dyspnea GI Denies abdominal pain, Denies change in stool character, Denies nausea and Denies vomiting Musc Denies deformity and Denies joint swelling Neuro Denies syncope and Denies headache(s) Physical exam (Primary Care) Vital Signs: Last Vital Signs Temp 97.1 F 07/23/24 09:20 Pulse 80 07/23/24 09:20 BP 136/78 07/23/24 09:20 Pulse Ox 97 07/23/24 09:20 Oxygen Delivery Method Room Air 07/23/24 09:20 BMI result Body Mass Index 16.8 Tobacco/Smoking Status: Tobacco use Status Tobacco use date assessed 07/23/24 07/23/24 09:27 Patient Tobacco Use Status Former Tobacco user 07/23/24 09:27 Tobacco use type Cigarette 07/23/24 09:27 e-Cigarette/Vaping Use Never Used 07/23/24 09:27 PHQ-9: PHQ-9 Score PHQ-9: Total score 0 07/23/24 09:27 Depression Screening Interpretation: Negative Thrive Assessment: Date of Thrive Assessment Date Thrive assessed 07/23/24 07/23/24 09:27 Currently or been in a relationship where the following occur: No concerns reported Const General: cooperative, comfortable, no acute distress and alert Neck Neck: Yes no lymphadenopathy Thyroid: Thyroid normal Resp Effort & Inspection: normal respiratory effort Auscultation: clear to auscultation bilaterally Percussion: percussion normal Cardio Jugular venous distension: no JVD Palpation: normal PMI Rate: regular rate Rhythm: regular rhythm Heart sounds: S1 normal heart sound present and S2 normal heart sound present GI Inspection: Yes normal to inspection Palpation (GI): No hepatosplenomegaly present Skin General skin exam: no rashes or lesions noted Extrem General: Yes no clubbing, cyanosis or edema Coding Level of Care Code Est Pt Level 3 (50864) Diagnoses Low back pain M54.50 Assessment & Plan Assessment & Plan (1) Low back pain: Code(s): M54.50 - Low back pain, unspecified Category: Medical Plan: xr and rx Orders: Orders Influenza [id number] Immunization Today Z23 - Encounter for immunization XR lumbar spine 2-3V Today M54.9 - Dorsalgia, unspecified Medications: New Fluarix Triv [id number] (PF) (flu vacc [id number] 6mos up(PF)) 0.5 mL IM ONCE 0.5 mL 0RF NS Z23 - Encounter for immunization tramadol 50 mg PO Q8H PRN 20 tabs 0RF pain
[2024-07-23 09:20] VITALS: BP 136/78; PULSE 80; TEMP 36.2; O2SAT 97; BMI 16.8
--- OUTSIDE RECORDS SUMMARY | 2024-07-23 12:27 | XMS_ITS | Clinical Summary ---
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 06/10/2023 Active LORazepam (Ativan) 1 MG tablet Take 1 mg by mouth if needed in the morning, at noon, and at bedtime. 06/30/2023 Active esomeprazole (NexIUM) [address] capsule Take 40 mg by mouth in the morning. 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 Dental caries 08/08/2023 Social History Tobacco Use Types Packs/Day Years Used Date Smoking Tobacco: Some Days Cigarettes Smokeless Tobacco: Never Tobacco Cessation:Ready to Q uit: Not Asked; Counseling Given: Not Answered Comments Unknown Sex and Gender Information Value Date Recorded Sex Assigned at Female 07/16/2023 9:17 AM EST Legal Sex Female 9:16 AM EST Gender Identity Female 07/16/2023 9:17 AM EST Sexual Orientation Straight 07/16/2023 9: 17 AM EST Last Filed Vital Signs Vital Sign Reading Time Taken Comments Blood Pressure 103/64 01/23/2024 8:40 AM EDT Pulse 63 01/23/2024 8:40 AM EDT Temperature - - Respiratory Rate - - Oxygen Saturation - - Inhaled Oxygen Concentration - - Weight - - Height - - Body Mass Index - - Plan of Treatment Upcoming Encounters Date Type Department Care Team (Late st Contact Info) Description 07/28/2024 9:00 AM EST Office Visit [facility] [address] [place] [id number] Liliane Rebolledo [address] [place], [place] [phone] Health Maintenance Due Date Last Done Comments CT Colonography 1962 Colonoscopy 1962 Colorectal Cancer Screening 1962 Depression Screening 1962 FIT DNA/Cologuard 1962 FIT 1962 FOBT 1962 HIV Screening 1962 Lipid Panel 1962 SDOH Screening 1962 Sigmoidoscopy 1962 Pneumococcal Vaccine: Pediatrics (0 to 5 Years) and At-Risk Patients (6 to 49) Years) (1 of 2 - PCV) 1968 Alcohol/Substance Use Screening 1974 Hepatitis C Screening 1980 Pap Smear 10/08/1983 Cervical Cancer Screening 1992 HPV/Cotest 1992 Mammogram 2002 Zoster Vaccines (1 of 2) 2012 Dental Oral Exam 01/22/2024 07/23/2023 COVID-19 Vaccine (3 - 2023-2 5 season) 2024 03/12/2021, 02/19/2021 Influenza Vaccine (#1) 2024 6, 05/05/2015 Dental X-Ray: Bitewings 07/24/2024 07/23/2023 Dental Prophylaxis 07/26/2024 01/23/2024, 08/13/2023 Tobacco Screening 01/22/2025 01/23/2024 DTaP/Tdap/Td Vaccines (2 - T d or Tdap) 01/31/2025 01/31/2015, 05/10/2013, 02/12/2012 Dental X-Ray: Full Mouth 07/24/2026 07/23/2023 RSV Patients and Patients Aged 60 years or older (1 - 1-dose 75+ series) 2037 HIB Vaccines Aged Out No longer eligi ble based on patient's age to complete this topic HPV Vaccines Aged Out No longer eligi ble based on patient's age to complete this topic Hepatitis A Vaccines Aged Out No long er eligible based on patient's age to complete this topic Hepatitis B Vaccines Aged Out No long er eligible based on patient's age to complete this topic IPV Vaccines Aged Out No longer eligi ble based on patient's age to complete this topic Meningococcal Vaccine Aged Out No gina keon eligible based on patient's age to complete this topic RSV under 20 months Aged Out No longe r eligible based on patient's age to complete this topic Rotavirus Vaccines Aged Out No longer eligible based on patient's age to complete this topic Procedures Procedure Name Priority Date/Time Associated Diagnosis Comments PROPHYLAXIS - ADULT Routine 01/23/2024 8 :00 AM EDT DIAGNOSTIC - DIAGNOSTIC IMAGING - INTRAORAL - COMPREHENSIVE SERIES OF RADIOGRAPHIC IMAGES Routine 07/23/2023 8:00 AM EST COMPREHENSIVE ORAL EVALUATION - NEW OR ESTABLISHED PATIENT Routine 07/23/2023 8:00 AM EST from Last 3 Months or Most Recently Relevant to Health Maintenance Insurance [facility]ANDARD DENTAL-[facility] MEDICA[facility] STAND ADULT
== END 2024-07-23 09:48 | disposition home or self-care (01) ==
PROVIDERS: PCP Internal Medicine; Visit Provider Internal Medicine
DX: Z23 Encounter for immunization (principal); M54.50 Low back pain, unspecified

== ENCOUNTER → 2024-07-23 09:17 | Outpatient (BNVA) | payer MEDICARE, MEDICAID, SELFPAY | PROVIDERS: PCP Internal Medicine; Visit Provider Internal Medicine | DX: Z23 Encounter for immunization (principal); M54.50 Low back pain, unspecified | CPT/HCPCS: 90471; 90656; 99212 ==

== ENCOUNTER 2024-08-24 06:59 | Outpatient (REF) | payer MEDICARE, MEDICAID, SELFPAY ==
--- NOTE | ~2024-08-24 | MR_ITS ---
CLINICAL HISTORY: M51.16 - Intervertebral disc disorders with radiculopathy, lumbar region MR of the lumbar spine without contrast Comparison: CR/AL/SR - LUMBAR SPINE 2TO 3 [id number] - 11/27/18 09:04 EDT Findings: Moderate dextrocurvature with the apex L2/L3. Retrolisthesis measuring up to 3 mm involving L1/L2, L2/L3, L3/L4 and L5/S1, degenerative. There is Modic type 1 change at L1/L2. There is Modic type 3 change at L4/L5. No cord expansion or abnormal signal intensity. The conus medullaris terminates at T12/L1, which is normal. The cauda equina is unremarkable. L1/L2: Disc desiccation with 4 mm broad-based disc bulge. Moderate facet joint and ligamentum flavum hypertrophy. Mild central canal stenosis. Moderate bilateral lateral recess stenosis. [id number] bilateral foraminal stenosis. L2/L3: Disc desiccation with a disc/osteophyte measuring 5 mm. Moderate facet joint and ligamentum flavum hypertrophy. Mild central canal stenosis. Moderate right and severe left lateral recess stenosis. No right and moderate left foraminal stenosis. L3/L4: There is disc desiccation with 5 mm left paracentral disc protrusion. Severe facet joint and ligamentum flavum hypertrophy. Bpuz-kc-juywhnwm central canal stenosis. Severe bilateral lateral recess stenosis. Mild right and severe left foraminal stenosis. L4/L5: Disc desiccation with a disc/osteophyte measuring 5 mm. Severe facet joint and ligamentum flavum hypertrophy. Moderate central canal stenosis. Severe bilateral lateral recess stenosis. Severe right and moderate left foraminal stenosis. L5/S1: 5 mm right paracentral disc protrusion predominantly involving the foraminal zone. Severe facet joint and ligamentum flavum hypertrophy. Mild central canal stenosis. Severe right and moderate left lateral recess stenosis. Severe right and mild left foraminal stenosis. Impression: Multilevel degenerative change, detailed above. Stenosis at L4/L5 and L5/S1 may account for the patient's presentation. This document has been electronically signed by: Chaya Cardenas MD on 08/24/2024 21:48:43
--- OUTSIDE RECORDS SUMMARY | 2024-08-24 07:02 | XMS_ITS | Encounter Summary ---
Author Organization [facility] [facility] Address [address] [place] [address] Care Team Providers Care Dross Skimmer Name Role Phone Unavailable Primary Care Provider Unavailabl e Reason for Visit * Reason Comments Routine Cleaning Encounter Details Date Type Department Care Team (Late st Contact Info) Description 07/28/2024 8:00 AM EST Office Visit [facility] [address] [place], [place] [phone] Liliane Rebolledo [address] [place], [place] [phone] Social History Tobacco Use Types Packs/Day Years Used Date Smoking Tobacco: Some Days Cigarettes Smokeless Tobacco: Never Comments Unknown Sex and Gender Information Value Date Recorded Sex Assigned at Female 07/16/2023 9:17 AM EST Legal Sex Female 9:16 AM EST Gender Identity Female 07/16/2023 9:17 AM EST Sexual Orientation Straight 07/16/2023 9: 17 AM EST documented as of this encounter Last Filed Vital Signs Vital Sign Reading Time Taken Comments Blood Pressure 68/50 07/28/2024 8:11 AM EST Pulse 94 07/28/2024 8:11 AM EST Temperature - - Respiratory Rate - - Oxygen Saturation - - Inhaled Oxygen Concentration - - Weight - - Height - - Body Mass Index - - documented in this encounter Progress Notes * Liliane Rebolledo - 07/28/2024 8:00 AM EST Patient ID: Selina Teran is a 63 y.o. female. Time Out: Date: 07/28/2024 Location: [facility] Tooth: all Procedure: X-rays and Prophylaxis Verified the above with patient, seed analysis laboratory assistant, and provider. Confirmed via patient's chart, intraorally and by radiographs. High School Social Studies Teacher: not applicable Treatment Provided Dental procedures in this visit D9450 - ADJUNCTIVE GENERAL SERVICES - PROFESSIONAL VISITS - CASE PRESENTATION, SUBSEQUENT TO DETAILED AND EXTENSIVE TREATMENT PLANNING (Completed) Service provider: Liliane Rbeolledo Billing provider: Edu Conley DDS D1110 - PROPHYLAXIS - ADULT (Completed) Service provider: Liliane Rebolledo Billing provider: Edu Conley DDS D0274 - BITEWINGS - 4 RADIOGRAPHIC IMAGES (Completed) Service provider: Liliane Rebolledo Billing provider: Edu Conley DDS Instruments Used: Hand Scalers and Prophy angle Calculus: Light-mod Plaque: Light Stain: None Bleeding: Moderate Gingiva: inflamed [place]: Fair OCS: neg findings HNE: neg findings Oral hygiene instructions provided to patient including brushing technique and flossing. Recommendations: Floss daily Recall Frequency: 6 mo Pt interested in new P/P. Rec having Kailee check to see if eligible and if eligible Kailee would call to set up appts. Pt stated she would call for appt. NV: Hygienist: Liliane Rebolledo RDH documented in this encounter Plan of Treatment Upcoming Encounters Date Type Department Care Team (Late st Contact Info) Description 08/25/2024 9:30 AM EST Office Visit [facility] [address] [place] [id number] Bay Mcfarlane BDS [address] [place] [phone] 01/28/2025 8:00 AM EDT Office Visit [facility] [address] [place] [phone] Liliane Rebolledo [address] [place] [phone] documented as of this encounter Procedures Procedure Name Priority Date/Time Associated Diagnosis Comments PROPHYLAXIS - ADULT Routine 07/28/2024 8 :00 AM EST CASE PRESENTATION, DETAILED AND EXTENSIVE TREATMENT PLANNING Routine 07/28/2024 8:00 AM EST BITEWINGS - 4 RADIOGRAPHIC IMAGES Routine 07/28/2024 8:00 AM EST documented in this encounter Visit Diagnoses Not on filedocumented in this encounter
--- OUTSIDE RECORDS SUMMARY | 2024-08-24 07:02 | XMS_ITS | Clinical Summary ---
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 Dental caries 08/08/2023 Encounters Date Type Department Care Team Description 07/28/2024 8:00 AM EST Office Visit [facility] [address] [place], [place] [id number] Liliane Rebolledo from Last 3 Months Social History Tobacco Use Types Packs/Day Years [...] Description 08/25/2024 9:30 AM EST Office Visit [facility] [address] [place] [id number] [place] Mcfarlane BDS [address] [place] [address] 01/28/2025 8:00 AM EDT Office Visit [facility] [address] [place] [address] Kesha, Liliane [address] [place] [address] Health Maintenance Due Date Last Done Comments CT Colonography 1962 Colonoscopy 1962 Colorectal Cancer Screening 1962 Depression Screening 1962 FIT DNA/Cologuard 1962 FIT 1962 FOBT 1962 HIV Screening 1962 Lipid Panel 1962 SDOH Screening 1962 Sigmoidoscopy 1962 Alcohol/Substance Use Screening 1974 Hepatitis C Screening 1980 Pneumococcal Vaccine: 50+ Years (1 of 2 - PCV) 1981 Pap Smear 10/08/1983 Cervical Cancer Screening 1992 HPV/Cotest 1992 Mammogram 2002 Zoster Vaccines (1 of 2) 2012 Dental Oral Exam 01/22/2024 07/23/2023 COVID-19 Vaccine (3 - 2023-2 5 season) 2024 03/12/2021, 02/19/2021 Dental Prophylaxis 01/26/2025 07/28/2024, 01/23/2024, 08/13/2023 DTaP/Tdap/Td Vaccines (2 - T d or Tdap) 01/31/2025 01/31/2015, 05/10/2013, 02/12/2012 Tobacco Screening 07/28/2025 07/28/2024 Dental X-Ray: Bitewings 07/29/2025 07/28/19 25, 07/23/2023 Dental X-Ray: Full Mouth 07/24/2026 07/23/2023 RSV Patients and Patients Aged 60 years or older (1 - 1-dose 75+ series) 2037 Influenza Vaccine Completed 07/23/2024, 03/27/2016, 05/05/2015 HIB Vaccines Aged Out No longer eligi [...] Procedure Name Priority Date/Time Associated Diagnosis Comments BITEWINGS - 4 RADIOGRAPHIC IMAGES Routine 07/28/2024 8:00 AM EST PROPHYLAXIS - ADULT Routine 07/28/2024 8 :00 AM EST CASE PRESENTATION, DETAILED AND EXTENSIVE TREATMENT PLANNING Routine 07/28/2024 8:00 AM EST INTRAORAL - COMPLETE SERIES OF RADIOGRAPHIC IMAGES Routine 07/23/2023 8:00 AM EST COMPREHENSIVE ORAL EVALUATION - NEW OR ESTABLISHED PATIENT Routine 07/23/2023 8:00 AM EST from Last 3 Months or Most Recently Relevant to Health Maintenance Insurance [facility]
== END 2024-08-24 07:00 | disposition home or self-care (01) ==
LOC: HO.MRI 06:59
PROVIDERS: PCP Internal Medicine; Visit Provider Internal Medicine
DX: M51.16 Intervertebral disc disorders with radiculopathy, lumbar region (principal)
CPT/HCPCS: 72148

== ENCOUNTER → 2024-08-24 07:14 | Outpatient (BNV) | payer MEDICARE, MEDICAID, SELFPAY | PROVIDERS: PCP Internal Medicine; Visit Provider Radiology Diagnostic Radiology | DX: M48.062 Spinal stenosis, lumbar region with neurogenic claudication (principal) | CPT/HCPCS: 72148 ==

== ENCOUNTER 2024-09-22 08:41 | Outpatient (AMB) | payer MEDICARE, MEDICAID, SELFPAY ==
--- NOTE | 2024-09-22 08:48 | A.OFFPC_ITS ---
Vital Signs 09/22/24 08:50 Height 5 ft 6 in Weight 101 lb BMI 16.3 BP 100/62 Blood Pressure Location Lt brachial Position Sitting Temp 97.1 F Temp Source Temporal Artery Scan Intake Visit Reasons: MRI results/ med refill Intake Note: Patient is here to follow up on MRI results and med refill. Kitchen Assistant Required: No Tubing Tester: Not Required per policy Accompanied by: Self / Same As Patient Allergies acetaminophen [From PERCOCET] Allergy (Unknown, Verified 09/22/24 09:00) RASH oxycodone [From PERCOCET] Allergy (Unknown, Verified 09/22/24 09:00) RASH Sulfa (Sulfonamide Antibiotics) [SULFA (SULFONAMIDE ANTIBIOTICS)] Allergy (Unknown, Verified 09/22/24 09:00) RASH clindamycin Allergy (Verified 09/22/24 09:00) Rash Medication List - Last Reconciled 09/22/24 by Danni Kramer PA-C compress.stocking,knee,reg,med As directed esomeprazole magnesium 40 mg PO DAILY ibuprofen 800 mg PO Q8H PRN lorazepam 1 mg PO TID PRN [lumbar pillow As directed] tramadol 50 mg PO Q8H PRN Tobacco use date assessed: 09/22/24 Dental Screening Dental Screen Date: 07/23/24 HPI MRI results/ med refill HPI Details 63-year-old female with past medical his tory of anxiety, chronic GERD, depression and lumbar disc radiculopathy last seen 06/[address] Monten[place] coming in for follow up.?In review of the notes, patient had lumbar spine MRI completed 08/24/2024 showing multilevel degenerative change and stenosis at L4-L5. Presenting with chronic and excruciating back pain. She has a background history of scoliosis, with degenerative disc disease noted on recent imaging at the L1- L2 with a disc bulge and narrowing of the spinal canal at L4-L5 and L5-S1. Pain is concentrated around the buttock area and causes severe mobility challenges, including requiring use of a walker during nighttime due to pain intensity disrupting sleep. Previous cortisone injections were found ineffective for symptom relief. She also mentions difficulty with mobility due to shag carpets at her apartment. [facility] Medical History Chronic GERD Anxiety Surgical History History of excision of lesion H/O breast biopsy Family History Father Myocardial infarction Mother No problems noted. Family/Other Colon cancer Breast cancer Uterine cancer Paternal Aunt Breast cancer Social History Housing: Apartment Alcohol intake: never Patient Tobacco Use Status: Current everyday Tobacco user Tobacco use type: Cigarette Cigarette Packs Per Day: 0.5 Cigarettes Per Day: 5 e-Cigarette/Vaping Use: Never Used Second Hand Smoke Exposure: Yes service: No Current occupational status: employed Current occupational exposures/hazards: No Cognitive needs: No Hearing needs: No Vision needs: Yes (glasses) Questionnaire Thrive Questionnaire Date Thrive assessed: 07/23/24 MICHELLE-7 AMB Questionnaire MICHELLE-7 Date MICHELLE - 7 assessed: 07/23/24 Source: Developed by Drs. Sharif Keating, Kelly Torres, Hussein Britton and colleagues, with an educational nancie from [employer]. Review of Systems Const Denies body aches, Denies chills and Denies fever(s) Eyes Reports no additional complaints ENT Reports no additional complaints Card Denies chest pain, Denies lightheadedness and Denies dyspnea Resp Denies dyspnea GI Reports no additional complaints Reports no additional complaints Musc Reports abnormal gait and Reports back pain (right sided radiculopathy ) Skin/Breast Reports system reviewed and no additional complaints, except as documented Neuro Reports abnormal gait Psych Reports no additional complaints Physical exam (Primary Care) Vital Signs: Last Vital Signs Temp 97.1 F 09/22/24 08:50 BP 100/62 09/22/24 08:50 BMI result Body Mass Index 16.3 Tobacco/Smoking Status: Tobacco use Status Tobacco use date assessed 09/22/24 09/22/24 08:56 Patient Tobacco Use Status Current everyday Tobacco 09/22/24 08:56 Tobacco use type Cigarette 09/22/24 08:56 e-Cigarette/Vaping Use Never Used 09/22/24 08:56 Thrive Assessment: Date of Thrive Assessment Date Thrive assessed 07/23/24 09/22/24 08:56 Const General: cooperative, healthy appearing, comfortable and no acute distress Orientation/consciousness: patient oriented x3 HENMT Head: Yes normocephalic Ears: hearing grossly normal bilaterally General nose exam: Normal external nose present Eyes General: appearance normal, both eyes and all related structures Conjunctivae: conjunctivae normal Neck Neck: Yes full ROM and Yes no lymphadenopathy Resp Effort & Inspection: normal respiratory effort Auscultation: clear to auscultation bilaterally, no crackles, no rales, no rhonchi and no wheezes Cardio Rate: regular rate Rhythm: regular rhythm Skin General skin exam: no rashes or lesions noted Neuro General: patient oriented x3 Gait exam (Neuro): Normal gait present Extrem General: Yes normal to inspection, Yes full ROM and No edema Psych Affect: normal affect Attitude: cooperative Insight: Good insight present (Psych) Judgement: Good judgement present (Psych) Coding Level of Care Code Est Pt Level 3 (97080) Diagnoses Lumbar disc disease with radiculopathy M51.16 Spinal stenosis of lumbar region M48.061 Assessment & Plan Assessment & Plan (1) Lumbar disc disease with radiculopathy: Code(s): M51.16 - Intervertebral disc disorders with radiculopathy, lumbar region Category: Medical Plan: We considered several approaches for managing the patient's chronic back pain due to degenerative disc disease and spinal narrowing. Since cortisone injections did not effectively relieve her symptoms in the past, referral to a paint and table edger was discussed for potential options including nerve blocks or TENS units. The MRI findings suggest that evaluation by a spinal surgeon might be prudent to explore surgical options. To assist with her mobility at home, we agreed to draft a letter supporting carpet removal. Additionally, she will have her prescription for lorazepam refilled as requested. Patient declining physical therapy as she has tried this in the past without good relief, declining surgical referral as well as she is not interested in surgery at this time. (2) Spinal stenosis of lumbar region: Comment: L4-L5 and L5-S1 Code(s): M48.061 - Spinal stenosis, lumbar region without neurogenic claudication Category: Medical Plan: See above plan Plan This note was constructed using voice recognition software. While every effort has been made to ensure accuracy and delivery merchandiser, still areas may have been included sometimes these areas may affect the content or meeting of the given symptoms. Total time spent caring for the patient today was 20 minutes. This includes time spent before the visit reviewing the chart, time spent during the visit, and time spent after the visit and documentation. Patient was informed and verbally consented to the use of an ambient scribe for clinic note documentation during this visit. Orders: Referrals Pain Management Referral M48.061 - Spinal stenosis, lumbar region without neurogenic claudication, M51.16 - Intervertebral disc disorders with radiculopathy, lumbar region Medications: Refilled lorazepam 1 mg PO TID PRN 90 tabs 1RF anxiety
[2024-09-22 08:50] VITALS: BP 100/62; TEMP 36.2; BMI 16.3
== END 2024-09-22 09:26 | disposition home or self-care (01) ==
LOC: HO.HMCH 08:41
PROVIDERS: PCP Internal Medicine
DX: M51.16 Intervertebral disc disorders with radiculopathy, lumbar region (principal); M48.061 Spinal stenosis, lumbar region without neurogenic claudication

== ENCOUNTER → 2024-09-22 08:41 | Outpatient (BNVA) | payer MEDICARE, MEDICAID, SELFPAY | PROVIDERS: PCP Internal Medicine | DX: M51.16 Intervertebral disc disorders with radiculopathy, lumbar region (principal); M48.061 Spinal stenosis, lumbar region without neurogenic claudication | CPT/HCPCS: 99212 ==

== ENCOUNTER 2024-10-26 08:34 | Outpatient (AMB) | payer MEDICARE, MEDICAID, SELFPAY ==
--- NOTE | 2024-10-26 08:35 | A.OFFVIS_ITS ---
Vital Signs 10/26/24 08:39 Height 5 ft 6 in Weight 98 lb 2 oz BMI 15.8 BP 160/70 H Blood Pressure Location Lt brachial Position Sitting Pulse 67 Pulse Source Pulse Oximeter Pulse Oximetry (%) 97 Oxygen Delivery Method Room Air Intake Visit Reasons: Spinal stenosis, lumbar reg Intake Note: Pain today 01/31 Rand Butter Required: No Allergies acetaminophen [From PERCOCET] Allergy (Unknown, Verified 10/26/24 08:43) RASH oxycodone [From PERCOCET] Allergy (Unknown, Verified 10/26/24 08:43) RASH Sulfa (Sulfonamide Antibiotics) [SULFA (SULFONAMIDE ANTIBIOTICS)] Allergy (Unknown, Verified 10/26/24 08:43) RASH clindamycin Allergy (Verified 10/26/24 08:43) Rash HPI Comments Details: The patient is a 64-year-old female presenting with back pain and right sided sciatica management. She has a long-standing history of lumbar scoliosis, which was diagnosed in high school and has gradually worsened, culminating in severe spinal stenosis identified on an MRI in August 2024. Her back pain has progressively increased in severity over the past 8 years, with associated sciatica symptoms developing over the last year. Patient reports right radiculopathy manifests as a sharp pain on the right side, primarily in the morning, limiting her daily tasks and mobility. Symptoms are exacerbated by prolonged walking or physical activities, requiring frequent rests every 5 minutes due to right leg discomfort. Her treatment history includes spine cortisone injections at [facility] and physical therapy and a high daily intake of ibuprofen, yielding limited relief. She also experienced a significant drop in blood pressure last year, which warranted an emergency hospital visit. Imaging studies confirm advanced multilevel spine degeneration and spinal stenosis at L4/L5 and L5/S1, aligning with her clinical symptoms. She denies previous bone density scan. - Onset and Timing: Back pain exacerbated over the last eight years; sciatica symptoms developed in the past year. - Quality and Character: Sharp, knife-like pain with periodic numbness. - Primary Location: Lower back, radiating to the waistline and right buttock. - Radiation: Extending down the right leg. - Exacerbating Factors: Stand or walk for more than five minutes, bending movements. Weather changes. - Relieving Factors: Temporary relief from ibuprofen (800mg twice-three times daily). - Interfering Activities: Limitations in walking, descending stairs, and prolonged sitting. - Affect: Patient expresses distress due to persistent pain, impacting mood and limiting daily activities. - Analgesia: Currently using ibuprofen 2400 mg daily with partial relief; pain levels reported between 6-7 on a scale of 0-10. - Adverse Effects: No reported significant adverse effects; aware of potential risks of long-term ibuprofen usage. - Activities of Daily Living: Pain significantly restricts mobility, particularly walking beyond a few minutes without rest. - Aberrant Drug-Related Behaviors: No noted misuse or abuse of medications. Oswestry Low Back Pain Disability Score=28 [facility] Medical History Chronic GERD Anxiety Surgical History History of excision of lesion H/O breast biopsy Family History Father Myocardial infarction Mother No problems noted. Family/Other Colon cancer Breast cancer Uterine cancer Paternal Aunt Breast cancer Social History Housing: Apartment Alcohol intake: never Patient Tobacco Use Status: Current everyday Tobacco user Tobacco use type: Cigarette Cigarette Packs Per Day: 0.5 Cigarettes Per Day: 5 e-Cigarette/Vaping Use: Never Used Second Hand Smoke Exposure: Yes service: No Current occupational status: employed Current occupational exposures/hazards: No Cognitive needs: No Hearing needs: No Vision needs: Yes (glasses) Review of Systems Const Details: - Musculoskeletal: Reports worsening back pain, sciatica; Denies hip pain. - Neurological: Reports numbness right buttock and right leg. - Genitourinary: Denies urinary or bowel incontinence. - Cardiovascular: Denies syncope post initial summer episode. - Endocrine: Denies osteoporosis; Small frame and low BMI noted for osteoporotic concern. - Integumentary: Post-surgical reports of breast reduction. All systems reviewed & are unremarkable except as noted in HPI and below Physical Exam General: Appears afebrile. Alert and oriented. Mood and affect appropriate. Follows and participates in conversation appropriately. Respiratory effort is unlabored. No cough. Able to transition from sit to stand unassisted. Ambulates with left normal heel strike and toe off, increased pain on the right with heel and toe standing. General: Yes no CVA tenderness Back/Spine/Pelvis Other: Limited lumbar ROM due to pain. Lumbar flexion and extension reproduce moderate pain. Demonstrates 5/5 left and 4/5 right strength of quadriceps bilaterally as well as flexion/dorsiflexion of bilateral feet against resistance. 2+ pedal pulses bilaterally. Seated/Supine straight leg rise with dorsiflexion negative bilaterally. +2 left +1 left patellar and +1 achilles reflexes bilaterally. Facet loading test positive bilaterally. Rhoda sign, Anatoly?s, Pelvic compression and Stinchfield tests are positive bilaterally, right>left. No groin pain with I/E hip rotations. Valsalva maneuver is positive. Back: no CVA tenderness Cervical Spine: cervical ROM normal, cervical muscular tenderness and No Cervical spine tenderness Thoracic/Lumbar Spine: thoracic and lumbar spine normal to inspection, No Thoracic/lumbar spine scar(s), Lasegue's sign positive on the right and localized, pain with thoraco-lumbar ROM, paraspinal muscle tenderness, thoraco- lumbar ROM limited, Thoracic/lumbar scoliosis, No thoracic spinal tenderness and lumbar spinal tenderness (L4-S1) Pelvis: buttock tenderness on the right and sciatic notch tenderness on the right Sacroiliac joints: bilaterally tender to palpation Results Reviewed Results Reviewed: MR lumbar spine wo con 08/24/24 CLINICAL HISTORY: M51.16 - Intervertebral disc disorders with radiculopathy, lumbar region Comparison: CR/FL/SR - LUMBAR SPINE 2TO 3 [id number] - 11/27/18 09:04 EDT Findings: Moderate dextrocurvature with the apex L2/L3. Retrolisthesis measuring up to 3 mm involving L1/L2, L2/L3, L3/L4 and L5/S1, degenerative. There is Modic type 1 change at L1/L2. There is Modic type 3 change at L4/L5. No cord expansion or abnormal signal intensity. The conus medullaris terminates at T12/L1, which is normal. The cauda equina is unremarkable. L1/L2: Disc desiccation with 4 mm broad-based disc bulge. Moderate facet joint and ligamentum flavum hypertrophy. Mild central canal stenosis. Moderate bilateral lateral recess stenosis. Subx-eg-xledcgpl bilateral foraminal stenosis. L2/L3: Disc desiccation with a disc/osteophyte measuring 5 mm. Moderate facet joint and ligamentum flavum hypertrophy. Mild central canal stenosis. Moderate right and severe left lateral recess stenosis. No right and moderate left foraminal stenosis. L3/L4: There is disc desiccation with 5 mm left paracentral disc protrusion. Severe facet joint and ligamentum flavum hypertrophy. Hygl-ef-gbkrwyog central canal stenosis. Severe bilateral lateral recess stenosis. Mild right and severe left foraminal stenosis. L4/L5: Disc desiccation with a disc/osteophyte measuring 5 mm. Severe facet joint and ligamentum flavum hypertrophy. Moderate central canal stenosis. Severe bilateral lateral recess stenosis. Severe right and moderate left foraminal stenosis. L5/S1: 5 mm right paracentral disc protrusion predominantly involving the foraminal zone. Severe facet joint and ligamentum flavum hypertrophy. Mild central canal stenosis. Severe right and moderate left lateral recess stenosis. Severe right and mild left foraminal stenosis. Impression: Multilevel degenerative change, detailed above. Stenosis at L4/L5 and L5/S1 may account for the patient's presentation. XR LUMBOSACRAL SPINE 11/27/2018 CLINICAL INFORMATION: Back pain. COMPARISON: Lumbar spine radiographs dated 11/16/2010. TECHNIQUE: Frontal and lateral views of the lumbosacral spine were obtained, together with a spot lateral view the lumbosacral junction. FINDINGS: Vertebral body heights are normal. There is a moderate lumbar dextroscoliosis. There is multi-level thoracolumbar degenerative disc disease and spondylosis, extending from T12-L1 through L5-S1. No acute fracture or spondylolisthesis is seen. The posterior elements are intact. The soft tissue planes are unremarkable. There are aortoiliac atherosclerotic calcifications. IMPRESSION: 1. There is a moderate lumbar dextroscoliosis. 2. There is multi-level thoracolumbar degenerative disc disease and spondylosis. 3. No acute fracture or spondylolisthesis is seen. Assessment & Plan Assessment & Plan (1) Lumbar disc disease with radiculopathy: Code(s): M51.16 - Intervertebral disc disorders with radiculopathy, lumbar region Category: Medical (2) Spinal stenosis of lumbar region: Comment: L4-L5 and L5-S1 Code(s): M48.061 - Spinal stenosis, lumbar region without neurogenic claudication Category: Medical (3) Low back pain: Code(s): M54.50 - Low back pain, unspecified Category: Medical (4) Underweight with body mass index (BMI) less than 18.5: Code(s): R63.6 - Underweight; Z68.1 - Body mass index [BMI] 19.9 or less, adult Category: Medical Plan The approach to managing the patient's spinal stenosis includes a comprehensive plan focusing on non-surgical interventions while evaluating suitability for possible nerve decompression surgery. Patient is strongly hesitant towards back surgery but will consider minimally invasive surgical options. A bone density scan is ordered to assess osteoporosis potential, which may impact steroid injection viability. Routine ibuprofen use continues under cautious dosing. Emphasized importance of well balanced diet and adequate hydration to safeguard renal and cardiac functions, with alternative pain management like radiofrequency ablation, Sprint PNS trial or spinal cord stimulator considered if pain persists. A spine surgeon evaluation will facilitate advanced therapy integration. The aim is to optimize function while minimizing risks through a personalized care strategy. All questions and concerns have been answered and patient agreed with the plan. Follow up after Neurosurgery evaluation and sooner as needed. Patient was informed and verbally consented to the use of an ambient scribe for clinic note documentation during this visit. Orders: Orders XR DEXA axial skeleton Today M48.061 - Spinal stenosis, lumbar region without neurogenic claudication, M51.16 - Intervertebral disc disorders with radiculopathy, lumbar region, M54.50 - Low back pain, unspecified, R63.6 - Underweight, Z68.1 - Body mass index [BMI] 19.9 or less, adult Referrals Neuro Spine Referral M48.061 - Spinal stenosis, lumbar region without neurogenic claudication Patient Instructions: In our discussion, I reviewed the intricacies of the patient?s spinal stenosis, evident from her MRI findings and consistent with patient's symptoms, while addressing concerns about the potential risks of surgical intervention and the benefits of exploratory minimally invasive approaches. We detailed the necessity for a bone density scan to preemptively evaluate any contraindications for steroidal injections, especially given her history of skeletal complications. The advantages of targeted non-surgical procedures like radiofrequency ablation and Sprint PNS trial were explored as interim solutions to manage chronic pain and sciatica effectively. Patient concerns over NSAIDs and potential renal implications were discussed with guidance on monitored usage. Comprehensive risk and benefit comparisons of surgical versus non-surgical management were provided, with a mutual decision to explore all avenues before any permanent interventions. Details about impending consultations and evaluations were clearly presented to support shared decision-making and reinforce patient autonomy in managing her condition. - Continue taking ibuprofen as needed for severe pain. Consider stopping NSAIDs for 1-2 weeks. - Drink plenty of fluids to support kidney health. - Apply heat therapy to the lower back to help relieve muscle tension and pain. - Follow up with the recommended bone density scan and spine surgeon consultation. - Engage in light activities and avoid strain to the lower back. - Monitor any changes in symptoms and report worsening pain or any new symptoms. Coding Level of Care Code New Pt Level 4 (05047) Diagnoses Lumbar disc disease with radiculopathy M51.16 Spinal stenosis of lumbar region M48.061 Low back pain M54.50 Underweight with body mass index (BMI) less than 18.5 R63.6; Z68.1
[2024-10-26 08:39] VITALS: BP 160/70; PULSE 67; O2SAT 97; BMI 15.8
--- OUTSIDE RECORDS SUMMARY | 2024-10-26 08:53 | XMS_ITS | Clinical Summary ---
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 Dental caries 08/08/2023 Encounters Date Type Department Care Team Description 10/20/2024 11:00 AM EDT Office Visit [facility] [address] [place] [phone] Makonateddy, Samanthaprasad, BDS 10/19/2024 8:00 AM EDT Office Visit [facility] [address] [place] [phone] Makonahally, Deviprasad, BDS 09/28/2024 8:00 AM EDT Office Visit [facility] [address] [place] [phone] Brainonateddy, Deviprasad, BDS Partially edentulous mandible, unspecified edentulism class (Primary Dx); Partially edentulous maxilla, unspecified edentulism class 09/24/2024 8:00 AM EDT Office Visit [facility] [address] [place] [phone] BrainBay sol, BDS 09/16/2024 Telephone [facility] [address] [place] [phone] BrainBay sol, BDS 09/14/2024 8:00 AM EDT Office Visit [facility] [address] [place] [phone] Bay Mcfarlane, BDS 08/25/2024 9:30 AM EST Office Visit [facility] [address] [place] [phone] Brainsweta Bay, BDS from Last 3 Months Social History Tobacco [...] Care Team (Late st Contact Info) Description 01/28/2025 8:00 AM EDT Office Visit [facility] [address] [place] [address] Liliane Rebolledo [address] [place], [place] [phone] Health Maintenance Due Date Last Done Comments [...] Tdap) 01/31/2025 01/31/2015, 05/10/2013, 02/12/2012 Dental X-Ray: Bitewings 07/29/2025 07/28/19 25, 07/23/2023 Tobacco Screening 10/20/2025 10/20/2024 Dental X-Ray: Full Mouth 07/24/2026 07/23/2023 RSV [...] Procedure Name Priority Date/Time Associated Diagnosis Comments RE-EVAL - POST-OP OFFICE VISIT Routine 10/20/2024 11:00 AM EDT CASE PRESENTATION, DETAILED AND EXTENSIVE TREATMENT PLANNING Routine 10/19/2024 8:00 AM EDT RE-EVAL - POST-OP OFFICE VISIT Routine 10/19/2024 8:00 AM EDT CASE PRESENTATION, DETAILED AND EXTENSIVE TREATMENT PLANNING Routine 09/28/2024 8:00 AM EDT 18,19,30,31 MANDIBULAR PARTIAL DENTURE - RESIN BASE (INCLUDING, RETENTIVE/CLASPING MATERIALS, RESTS, AND TEETH) Routine 09/28/2024 8:00 AM EDT 8,9 MAXILLARY PARTIAL DENTURE - RESIN BASE (INCLUDING, RETENTIVE/CLASPING MATERIALS, RESTS, AND TEETH) Routine 09/28/2024 8:00 AM EDT CASE PRESENTATION, DETAILED AND EXTENSIVE TREATMENT PLANNING Routine 09/24/2024 8:00 AM EDT WAX TRY IN Routine 09/24/2024 8:00 AM EDT BITE REGISTRATION Routine 09/14/2024 8:0 0 AM EDT CASE PRESENTATION, DETAILED AND EXTENSIVE TREATMENT PLANNING Routine 09/14/2024 8:00 AM EDT CASE PRESENTATION, DETAILED AND EXTENSIVE TREATMENT PLANNING Routine 08/25/2024 9:30 AM EST DENTURE IMPRESSION Routine 08/25/2024 9: 30 AM EST PROPHYLAXIS - ADULT Routine 07/28/2024 8 :00 AM EST BITEWINGS - 4 RADIOGRAPHIC IMAGES Routine 07/28/2024 8:00 AM EST INTRAORAL - COMPLETE SERIES OF RADIOGRAPHIC IMAGES Routine 07/23/2023 8:00 AM EST COMPREHENSIVE ORAL EVALUATION - NEW OR ESTABLISHED PATIENT Routine 07/23/2023 8:00 AM EST from Last 3 Months or Most Recently Relevant to Health Maintenance Insurance [facility] STANDARD DENTAL-[facility] MEDICAID STAND ADULT
== END 2024-10-26 09:20 | disposition home or self-care (01) ==
LOC: HO.PMC 08:34
PROVIDERS: PCP Internal Medicine; Visit Provider Nurse Practitioner Family
DX: M51.16 Intervertebral disc disorders with radiculopathy, lumbar region (principal); M48.061 Spinal stenosis, lumbar region without neurogenic claudication; M54.50 Low back pain, unspecified; R63.6 Underweight; Z68.1 Body mass index [BMI] 19.9 or less, adult
CPT/HCPCS: 99204

== ENCOUNTER → 2024-10-26 08:34 | Outpatient (BNVA) | payer MEDICARE, MEDICAID, SELFPAY | PROVIDERS: PCP Internal Medicine; Visit Provider Nurse Practitioner Family | DX: M51.16 Intervertebral disc disorders with radiculopathy, lumbar region (principal); M48.061 Spinal stenosis, lumbar region without neurogenic claudication; M54.50 Low back pain, unspecified; R63.6 Underweight; Z68.1 Body mass index [BMI] 19.9 or less, adult | CPT/HCPCS: 99202 ==

== ENCOUNTER 2024-11-02 09:00 | Outpatient (AMB) | payer MEDICARE, MEDICAID, SELFPAY ==
--- NOTE | 2024-11-02 09:05 | HO.SPINEOV ---
Vital Signs 11/02/24 09:08 Height 5 ft 6 in Weight 98 lb BMI 15.8 Intake Visit Reasons: spinal stenosis Intake Note: Ms. Teran is here today c/o severe back pain. Campus Police Officer Required: No Allergies acetaminophen [From PERCOCET] Allergy (Unknown, Verified 11/02/24 09:08) RASH oxycodone [From PERCOCET] Allergy (Unknown, Verified 11/02/24 09:08) RASH Sulfa (Sulfonamide Antibiotics) [SULFA (SULFONAMIDE ANTIBIOTICS)] Allergy (Unknown, Verified 11/02/24 09:08) RASH clindamycin Allergy (Verified 11/02/24 09:08) Rash Physical Exam Vital Signs: BMI result Body Mass Index 15.8 Assessment & Plan Assessment & Plan (1) Low back pain: Code(s): M54.50 - Low back pain, unspecified Category: Medical (2) Degenerative scoliosis: Code(s): M41.50 - Other secondary scoliosis, site unspecified Category: Medical Plan Dear Nataly, Thank you for referring Selina to our office today. She is a pleasant, anxious, 64-year-old female who comes in today with a chief complaint of severe, chronic, low back pain. She reports that she has a pertinent past medical history of childhood scoliosis discovered on a routine child wellness medical exam. She states she did not receive bracing or surgical intervention as a child. She feels as though her back pain has slowly worsened as the years have progressed, to the point where she is essentially in pain all day now. She does report some occasional right-sided leg pain, stating that it starts in her low back shoots over her posterior buttocks into the posterior thigh terminating before the knee. She denies any numbness / tingling / burning associated with the pain. She reports that her pain feels better with walking, and worse with prolonged stasis. She states that positional changes also exacerbate her pain such as sitting up from a lying position or standing from a seated position. She reports that she only is able to sleep about 4 hours per night due to general discomfort, but does not wake up in pain. She states that she recently completed a course of physical therapy, which she reports only caused her increased pain. She also has been followed by [facility] in the past 2 completed a series of cortisone injections in her low back. She states that she obtained no relief from these injections. She most recently was evaluated by our colleagues in pain management who have ordered her a bone density scan. PMH: Hyperlipidemia, GERD. Social hx: The patient does not smoke, reports no substance use. Medications: See [employer] list. No anticoagulants no pulmonary medications no cardiac medications. The patient is on meloxicam and ibuprofen NSAIDs. Allergies: Tylenol, oxycodone, sulfa, clindamycin. Physical exam: The patient has 5/5 strength in her upper and lower extremities. She ambulates well, with a nonantalgic non spastic gait. She is able to rise from a seated position without difficulty, and gets up onto the examination table without issue. She uses no assistive devices to ambulate. She has no significant sensational deficits on examination. She has 3+ hyperreflexia bilaterally in the patella, which I could not replicate in her upper extremities. She also has (+) Gutierrez's bilaterally when testing her 3rd phalanx bilaterally. (-) Babinski's bilaterally. No clonus. (-) Bilateral straight leg raise. Imaging review: MRI of the lumbar spine completed here at [facility] shows a degenerative dextroscoliosis with the apex at L2-3. There is a lateral listhesis of L4-5. Varying levels of stenosis seen throughout the lumbar spine with severe disc degeneration noted diffusely. Most pronounced is the severe left-sided foraminal stenosis at L3-4, in the posterior disc bulge at L4-5 causing severe right-sided foraminal stenosis at this level. Impression: Selina is a pleasant 64-year-old female who comes in today for evaluation of chronic longstanding severe low back pain. She has a very occasional radicular component, but expressly states that her low back pain is her primary concern. She does report a history of childhood scoliosis in her low back, which has never been treated with bracing or surgery. Her low back pain has most likely a result of the degenerative scoliosis seen in the lumbar spine. in patients such as her who have a severe radicular component, sometimes a small procedure to free up compressed nerves can be a beneficial alternative to scoliosis correction. Unfortunately, I believe to address this patient has severe low back pain she would need minimally invasive multilevel lumbar fusion for correction of her degenerative scoliosis. We briefly discussed this, but she seemed rather averse to the idea of surgery. I believe that a good place to start with the care and would be to have her complete her bone density scan, and to obtain a set of dynamic lumbar spine x-rays to see if there is worsening listhesis with movement. She may continue to follow up with our colleagues in pain management after her bone density scan that they ordered. If she is found to have adequate bone quality and does wish to consider scoliosis correction via lumbar fusion, she may follow up in clinic with Dr. Cavazos to discuss further. Thank you for allowing us to care for your patient. The total time spent with this visit with this patient was 45 minutes reviewing history, physical exam, MRI imaging review, and implementation of treatment plan or further diagnostic testing Roque Cavazos MD,PhD [facility] Orders: Orders XR lumbar spine 4V min Today M54.50 - Low back pain, unspecified Coding Level of Care Code New Pt Level 4 (06485) Diagnoses Low back pain M54.50 Degenerative scoliosis M41.50
--- OUTSIDE RECORDS SUMMARY | 2024-11-02 09:07 | XMS_ITS | Clinical Summary ---
Author Organization [employer] [facility] Address [address] [place] [address] Care Team Providers Care Microsoft Office Instructor Name Role Phone Unavailable Primary Care Provider [...] Description 10/20/2024 11:00 AM EDT Office Visit [facility] [address] [place] [phone] Makonateddy, Samanthaprasad, BDS 10/19/2024 8:00 AM EDT Office Visit [facility] [address] [place] [phone] Makonahally, Deviprasad, BDS 09/28/2024 8:00 AM EDT Office Visit [facility] [address] [place] [phone] Brainonateddy, Deviprasad, BDS Partially edentulous mandible, unspecified edentulism class (Primary Dx); Partially edentulous maxilla, unspecified edentulism class 09/24/2024 8:00 AM EDT Office Visit [facility] [address] [place] [phone] BrainBay sol, BDS 09/16/2024 Telephone [facility] [address] [place] [phone] BrainBay sol, BDS 09/14/2024 8:00 AM EDT Office Visit [facility] [address] [place] [phone] Bay Mcfarlane, BDS 08/25/2024 9:30 AM EST Office Visit [facility] [address] [place] [phone] Brainsweta Bay, BDS from Last 3 Months [...] Description 01/28/2025 8:00 AM EDT Office Visit [facility] [address] [place] [address] Liliane Rebolledo [address] [place], [place] [phone] Health Maintenance Due Date Last Done Comments [...] Most Recently Relevant to Health Maintenance Insurance [facility] STANDARD DENTAL-[facility] MEDICAID STAND ADULT
[2024-11-02 09:08] VITALS: BMI 15.8
== END 2024-11-02 09:37 | disposition home or self-care (01) ==
LOC: HO.HNS 09:01
PROVIDERS: PCP Internal Medicine; Referring Provider Nurse Practitioner Family; Visit Provider Physician Assistant
DX: M54.50 Low back pain, unspecified (principal); M41.50 Other secondary scoliosis, site unspecified
CPT/HCPCS: 99204

== ENCOUNTER 2024-11-02 09:00 | Outpatient (REF) | payer MEDICARE, MEDICAID, SELFPAY ==
--- NOTE | ~2024-11-02 | XR_ITS ---
CLINICAL HISTORY: M54.50 - Low back pain, unspecified --- Additional Notes or Special Instructions: A P LAT FLEX EX Lumbar spine two views with flexion-extension Comparison: 11/27/2018 Findings: No acute fracture or dislocation. Posterior alignment is normal. No alignment change with flexion-extension. Very limited range of motion noted. Severe degenerative change. Dextroscoliosis noted. No radiopaque foreign bodies. Impression: No acute processes This document has been electronically signed by: Neftali Mccauley MD on 11/02/2024 19:55:08
--- OUTSIDE RECORDS SUMMARY | 2024-11-02 09:53 | XMS_ITS | Clinical Summary ---
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 [address] [place] [phone] Makonateddy, Samanthaprasad, BDS 10/19/2024 8:00 AM EDT Office Visit [facility] [address] [place] [phone] Makonahally, Deviprasad, BDS 09/28/2024 8:00 AM EDT Office Visit [facility] [address] [place] [phone] Brainonateddy, Deviprasad, BDS Partially edentulous mandible, unspecified edentulism class (Primary Dx); Partially edentulous maxilla, unspecified edentulism class 09/24/2024 8:00 AM EDT Office Visit [facility] [address] [place] [phone] [place] sol, BDS 09/16/[address] [facility] [address] [place] [phone] [place] sol, BDS 09/14/2024 8:00 AM EDT Office Visit [facility] [address] [place] [phone] Bay Mcfarlane, BDS 08/25/2024 9:30 AM EST Office Visit [facility] [address] [place] [phone] [place], BDS from Last 3 Months [...] Description 01/28/2025 8:00 AM EDT Office Visit [facility] [address] [place] [address] Liliane Rebolledo [address] [place], [place] [phone] Health Maintenance Due Date Last Done Comments [...] Most Recently Relevant to Health Maintenance Insurance [facility] STANDARD DENTAL-[facility] MEDICAID STAND ADULT
== END 2024-11-02 09:01 | disposition home or self-care (01) ==
LOC: HO.HOSX 09:00
PROVIDERS: PCP Internal Medicine; Referring Provider Nurse Practitioner Family; Visit Provider Physician Assistant
DX: M54.50 Low back pain, unspecified (principal); M41.50 Other secondary scoliosis, site unspecified
CPT/HCPCS: 72110; 99202

== ENCOUNTER → 2024-11-02 09:40 | Outpatient (BNV) | payer MEDICARE, MEDICAID, SELFPAY | PROVIDERS: PCP Internal Medicine; Referring Provider Nurse Practitioner Family; Visit Provider Radiology Diagnostic Radiology | DX: M54.50 Low back pain, unspecified (principal) | CPT/HCPCS: 72110 ==

== ENCOUNTER 2024-11-06 11:30 | Outpatient (AMB) | payer MEDICARE, MEDICAID, SELFPAY ==
--- NOTE | 2024-11-06 11:32 | MHC.PC.OV ---
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 Accompanied by: Self / Same As Patient Allergies oxycodone [From PERCOCET] Allergy (Unknown, Verified 11/06/24 11:42) RASH Sulfa (Sulfonamide Antibiotics) [SULFA (SULFONAMIDE ANTIBIOTICS)] Allergy (Unknown, Verified 11/06/24 11:42) RASH clindamycin Allergy (Verified 11/06/24 11:42) Rash Medication List - Last Reconciled 11/06/24 by Scot Vega MD biotin 1 mg PO DAILY compress.stocking,knee,reg,med As directed esomeprazole magnesium 40 mg PO DAILY lorazepam 1 mg PO TID PRN [lumbar pillow As directed] meloxicam 15 mg PO DAILY tramadol 50 mg PO Q8H PRN Tobacco use date assessed: 09/22/24 Dental Screening Dental Screen Date: 07/23/24 HPI [place] - HPI Details PAtient is having problems with cleaning house and asking for help at home. [facility] Medical History (Updated 11/06/24 @ 12:27 by Scot Vega MD) Anxiety Mild depression Cough Chronic GERD Surgical History History of excision of lesion H/O breast biopsy Family History (Updated 11/06/24 @ 12:09 by Scot Vega MD) Father Myocardial infarction Mother No problems noted. Family/Other Colon cancer Breast cancer Paternal Aunt Breast cancer Sister Colon cancer Other Uterine cancer Social History (Updated 11/06/24 @ 12:10 by Scot Vega MD) Housing: Apartment Alcohol intake: never Patient Tobacco Use Status: Current everyday Tobacco user Tobacco use type: Cigarette Cigarette Packs Per Day: 0.5 Cigarettes Per Day: 3 e-Cigarette/Vaping Use: Never Used Second Hand Smoke Exposure: Yes service: No Current occupational status: employed Current occupational exposures/hazards: No Cognitive needs: No Hearing needs: No Vision needs: Yes (glasses) Questionnaire PHQ-9 Over the last 2 weeks, how often have you been bothered by any of the following problems? 1. Little interest or pleasure in doing things: several days 2. Feeling down, depressed, or hopeless: several days 3. Trouble falling or staying asleep, or sleeping too much: several days 4. Feeling tired or having little energy: several days 5. Poor appetite or overeating: not at all 6. Feeling bad about yourself - or that you are a failure or have let yourself or your family down: several days 7. Trouble concentrating on things, such as reading the newspaper or watching television: not at all 8. Moving or speaking so slowly that other people could have noticed. Or the opposite - being so fidgety or restless that you have been moving around a lot more than usual: several days 9. Thoughts that you would be better off or of hurting yourself in some way: not at all Total score: 6 65567 - PHQ-9 Billing: Yes Source: Developed by Drs. Sharif Keating, Kelly Torres, Hussein Britton and colleagues, with an educational nancie from [employer]. Thrive Questionnaire Date Thrive assessed: 11/06/24 I am a: Patient What is your living situation today?: I have a steady place to live Within the past 12 months, did the food you bought not last and you didn't have the money to get more?: Sometimes True Within the past 12 months, did you worry whether your food would run out before you got money to buy more?: Sometimes True Do you have trouble paying for medicines?: I choose not to answer this question Do you have trouble getting transportation to medical appointments?: Yes Do you have trouble paying your heating and electricity bill?: I choose not to answer this question Do you have trouble taking care of your child, family member or friend?: I choose not to answer this question Do you have trouble with day-to-day activities such as bathing, preparing meals, shopping, managing finances, etc.?: I choose not to answer this question Are you currently unemployed and looking for a job?: I choose not to answer this question Are you interested in more education?: I choose not to answer this question Please select the resources that you would like help with: None Currently or been in a relationship where the following occur: I choose not to answer THRIVE Score: 3 AUDIT C Alcohol Use Questionnaire (AUDIT-C) 1. How often do you have a drink containing alcohol?: Never 3. How often do you have six or more drinks on one occasion?: Never Total Score: 0 MICHELLE-7 AMB Questionnaire MICHELLE-7 Date MICHELLE - 7 assessed: 11/06/24 Feeling nervous, anxious, or on edge: 3 = Nearly every day Not being able to stop or control worryin = Nearly every day Worrying too much about different things: 3 = Nearly every day Trouble relaxin = Nearly every day Being so restless that it is hard to sit still: 1 = Several days Becoming easily annoyed or irritable: 1 = Several days Feeling afraid as if something awful might happen: 1 = Several days Total MICHELLE-7 score (0-4 normal; 5-9 mild; 10-14 moderate; 15-21 severe): 15 Source: Developed by Drs. Sharif Keating, Kelly Torres, Hussein Britton and colleagues, with an educational nancie from [employer]. MICHELLE-7 Assessment Billing MICHELLE-7 Assessment Tool: MICHELLE-7 Assessment 88298 Physical exam (Primary Care) Vital Signs: Last Vital Signs Temp 97.3 F 11/06/24 11:41 Pulse 92 11/06/24 11:41 BP 148/76 H 11/06/24 11:41 Pulse Ox 96 11/06/24 11:41 Oxygen Delivery Method Room Air 11/06/24 11:41 BMI result Body Mass Index 15.7 Tobacco/Smoking Status: Tobacco use Status Tobacco use date assessed 09/22/24 11/06/24 11:32 Patient Tobacco Use Status Current everyday Tobacco 11/06/24 11:32 Tobacco use type Cigarette 11/06/24 11:32 e-Cigarette/Vaping Use Never Used 11/06/24 11:32 PHQ-9: PHQ-9 Score PHQ-9: Total score 6 11/06/24 11:32 Thrive Assessment: Date of Thrive Assessment Date Thrive assessed 11/06/24 11/06/24 11:32 Currently or been in a relationship where the following occur: I choose not to answer Coding Level of Care Code Est Pt Level 4 (01682) Complex EM visit Add On G2211 Diagnoses Underweight with body mass index (BMI) less than 18.5 R63.6; Z68.1 Spinal stenosis of lumbar region M48.061 Hypercholesterolemia E78.00 Chronic GERD K21.9 Generalized anxiety disorder F41.1 Insomnia G47.00 Colon cancer screening Z12.11 Cervical cancer screening declined Z53.20 Tobacco abuse Z72.0 Blood pressure elevated without history of HTN R03.0 Additional Codes MICHELLE-7 Assessment Billing - MICHELLE-7 Assessment Tool: MICHELLE-7 Assessment 58503 ([id number]) PHQ-9 - 66129 - PHQ-9 Billing: Yes ([id number]) Assessment & Plan Assessment & Plan (1) Underweight with body mass index (BMI) less than 18.5: Code(s): R63.6 - Underweight; Z68.1 - Body mass index [BMI] 19.9 or less, adult Category: Medical Plan: Diet and exercise (2) Spinal stenosis of lumbar region: Comment: L4-L5 and L5-S1 Code(s): M48.061 - Spinal stenosis, lumbar region without neurogenic claudication Category: Medical Plan: Patient has been seen by the spine center and has discussed about plans. (3) Hypercholesterolemia: Code(s): E78.00 - Pure hypercholesterolemia, unspecified Category: Medical Plan: Avoid fried foods, chicken skin, eggs, butter margarine, pastries and meat. Be it pork or beef they have a lot of cholesterol LDL goal of less than 130 and triglyceride of less than 150 (4) Chronic GERD: Code(s): K21.9 - Gastro-esophageal reflux disease without esophagitis Category: Medical Plan: Avoid the foods that causes that usually spicy foods, tomato products, juices, coffee, soda and foods that your sensitive to. After eating do not lie down, allow 3-4 hours before in lie down. And keep the head of bed above 30 degrees to avoid the acid from going up. (5) Generalized anxiety disorder: Code(s): F41.1 - Generalized anxiety disorder Category: Medical Plan: Patient on lorazepam as needed (6) Insomnia: Code(s): G47.00 - Insomnia, unspecified Category: Medical (7) Colon cancer screening: Code(s): Z12.11 - Encounter for screening for malignant neoplasm of colon Category: Medical (8) Cervical cancer screening declined: Code(s): Z53.20 - Procedure and treatment not carried out because of patient's decision for unspecified reasons Category: Medical (9) Tobacco abuse: Code(s): Z72.0 - Tobacco use Category: Medical (10) Blood pressure elevated without history of HTN: Code(s): R03.0 - Elevated blood-pressure reading, without diagnosis of hypertension Category: Medical Plan: monitor BP and decrease salt intake Plan History of Present Illness The patient is a 64-year-old female presenting with lumbar spinal stenosis and degenerative scoliosis. He was previously evaluated in September 2024, and advised minimally invasive lumbar fusion to address the degenerative scoliosis. Subsequent X-rays confirmed severe degenerative changes with right-sided scoliosis. The patient underwent an MRI on August 24, 2024, which revealed multilevel changes and stenosis at the L4-L5 and L5-S1 levels. Earlier blood work was normal except for elevated LDL cholesterol. Health Maintenance - Bone density scan advised for assessment of bone health. - Lipid panel showed elevated LDL cholesterol; patient considered for lipid-lowering strategies. Social History Review of Systems - Musculoskeletal: Reports lumbar spine pain related to spinal stenosis and scoliosis. Physical Exam Results - X-ray: No acute processes or alignment changes; severe degenerative changes and right-sided scoliosis observed. - MRI: Multilevel degenerative changes and stenosis at L4-L5, L5-S1. Plan Management involves close monitoring of degenerative lumbar spine changes and ongoing stenosis. Though surgical intervention was previously advised, alternative non-surgical options and exercises may be explored if surgery isn't pursued. Current diagnostic imaging supports continued monitoring. With elevated LDL cholesterol, the patient should be encouraged towards appropriate dietary changes and possibly starting a statin after further consultation. Treatment continuation for GERD and anxiety is also important, with suitable follow-ups for any symptom changes. Patient was informed and verbally consented to the use of an ambient scribe for clinic note documentation during this visit. Discussion Notes I reviewed the patient's condition, specifically the lumbar spinal stenosis and degenerative scoliosis requiring monitoring due to significant imaging findings. The previously recommended lumbar fusion surgery remains an option. Discussed benefits of surgery against potential risks and the availability of alternative management without surgery. The importance of managing the elevated LDL was also highlighted, focusing on benefits of lipid-lowering strategies. Given the patient's concern, further lifestyle modifications regarding diet were discussed. Suggested monitoring of GERD and anxiety symptoms to prevent worsening was advised. Patient Instructions - Remain informed and consider options for surgical intervention. - Follow-up on dietary recommendations to manage cholesterol levels. - Continue prescribed treatments for GERD and anxiety. - Seek immediate care if new symptoms arise or existing symptoms worsen. - Schedule and attend follow-up appointments to monitor spine health. History of Present Illness The patient is a 64-year-old female presenting with chronic back pain and anxiety. Her scoliosis was initially diagnosed in high school but remained untreated, progressively worsening as she aged. Significant pain associated with degenerative changes has impacted her functional capacity. Ibuprofen relieved her symptoms, though concerns over adverse effects prompted discontinuation. Alternatives such as acetaminophen proved inadequate. The patient is cautious about using tramadol. Her anxiety is pronounced during specific scenarios, managed with lorazepam, though without adequate control of symptoms. Complaints include sleep deprivation, averaging four hours nightly. Although her medical history lacks other significant systemic issues, her concern regarding hypercholesterolemia has intensified due to familial risk factors. Current blood work demonstrates elevated total and LDL cholesterol levels, necessitating further management. Health Maintenance - Screening for hypercholesterolemia: Total cholesterol elevated to 239 mg/dL; LDL cholesterol increased to 162 mg/dL as of May 2023. - Discussed cardiovascular risk and encouraged dietary modifications to meet lipid target goals. - Lung cancer screening referral due to history of smoking: discussion of importance and procedure. - Scheduled bone density scan for osteoporosis screening. - Reviewed adherence to vaccination schedule; tetanus is due, and discussed pneumonia and shingles vaccinations given smoking history. - Discussed cessation strategies for nicotine dependence, impact on health, and ongoing smoking-related risks. Social History - Smokes three cigarettes per day with a prior history of smoking one pack per day for over 20 years. - Lives independently and works part-time; she is considering hiring assistance for light domestic tasks. - A diet devoid of fried foods, fast foods, or cholesterol-rich items per patient report. - Physical activity is limited due to pain. Review of Systems - Cardiovascular: Denies chest pain, syncope, or palpitations. - Respiratory: Denies cough or dyspnea. - Neurological: Denies headaches, seizures, or focal neurological deficits. - Musculoskeletal: Reports chronic back pain and scoliosis; denies arthritis in other joints. - Psychiatric: Reports increased anxiety and reduced sleep duration; denies depression. - Gastrointestinal: Reports gastroesophageal reflux; denies any new gastrointestinal symptoms. Physical Exam - Vitals- Blood pressure slightly elevated, further monitoring recommended. - Musculoskeletal- Notable scoliosis contributing to back discomfort. Results - Labs: Previous lipid profile indicating total cholesterol at 239 mg/dL, LDL at 162 mg/dL. - Screening: Discussion of upcoming bone density scan and lung cancer screening options. Plan I recommended transitioning the patient from ibuprofen to Celecoxib to manage chronic back pain due to its superior gastrointestinal safety profile. Given previous inadequate pain relief from acetaminophen, tramadol remains a secondary consideration should Celecoxib prove insufficient. Additionally, to address anxiety and co-morbid sleep deprivation, I discussed initiating Trazodone. Nutritional counselling will focus on cholesterol reduction to address elevated lipid levels. We will proceed with further monitoring via fasting labs and initiate a psychiatric consultation for anxiety management. Preventative screening for bone density and potential lung cancer were duly addressed, necessitating future follow-ups. Vaccination updates, particularly tetanus and pneumococcal, remain essential given the smoking factor. Smoking cessation support was recommended alongside exploring assistance for light home upkeep tasks. A return visit is planned for further evaluation and adjustments as needed. Patient was informed and verbally consented to the use of an ambient scribe for clinic note documentation during this visit. Discussion Notes I discussed the transition to Celecoxib for back pain management due to its favorable side-effect profile compared to ibuprofen. Tramadol may be considered if additional analgesia is necessary, highlighting its non-narcotic classification. Anxiety management alterations including Trazodone were detailed, noting its potential benefits for sleep. We thoroughly reviewed cholesterol management strategies, aiming for an LDL target under 130 mg/dL, and addressed genetic predispositions alongside lifestyle changes. Preventative measures include scheduling a bone density scan and lung cancer screening, and the importance of adherence to vaccination schedules. I advised smoking cessation and enrolled the patient in applicable support measures, addressing occupational and personal burdens. Follow-up was outlined to monitor therapeutic outcomes and handle any ensuing issues. Patient Instructions - Begin taking Celecoxib as prescribed for back pain. - Consider tramadol if pain persists with Celecoxib. - Start Trazodone at bedtime for sleep and anxiety. - Maintain cholesterol-lowering diet. - Schedule a follow-up for labs to check cholesterol and kidney function. - Receive tetanus and pneumococcal vaccines when advised. - Reduce cigarette smoking and consider cessation programs. - Coordinate with a psychiatric nurse to address anxiety. - Explore assistance for light cleaning tasks as needed. - Monitor any changes in symptoms and seek medical attention if necessary. - Return to the clinic as advised and inform if any questions arise. Orders: Orders Thyroid Stimulating Hormone Today E78.00 - Pure hypercholesterolemia, unspecified Vitamin D 25-OH Total Today E78.00 - Pure hypercholesterolemia, unspecified Complete Blood Count Auto Diff Today E78.00 - Pure hypercholesterolemia, unspecified Comprehensive Met. Panel Today E78.00 - Pure hypercholesterolemia, unspecified Free T4 (Free Thyroxine) Today E78.00 - Pure hypercholesterolemia, unspecified Lipid Panel Today E78.00 - Pure hypercholesterolemia, unspecified Vitamin B12 and Folate Today E78.00 - Pure hypercholesterolemia, unspecified Referrals Lung Cancer Screening Referral Z72.0 - Tobacco use Psychiatry Outpatient Consultation Service F41.1 - Generalized anxiety disorder Cologuard Test Z12.11 - Encounter for screening for malignant neoplasm of colon Medications: New celecoxib (Celebrex) 200 mg PO DAILY 30 caps 0RF M48.061 - Spinal stenosis, lumbar region without neurogenic claudication trazodone 50 mg PO BEDTIME PRN 30 tabs 2RF sleep G47.00 - Insomnia, unspecified
[2024-11-06 11:41] VITALS: BP 148/76; PULSE 92; TEMP 36.3; O2SAT 96; BMI 15.7
--- OUTSIDE RECORDS SUMMARY | 2024-11-06 11:46 | XMS_ITS | Clinical Summary ---
Author Organization [facility] Address [address] [place] [address] Care Team Providers Care Certifier Name Role Phone Unavailable Primary Care Provider [...] Description 10/20/2024 11:00 AM EDT Office Visit [facility] [address] [place] [phone] Makonateddy, Samanthaprasad, BDS 10/19/2024 8:00 AM EDT Office Visit [facility] [address] [place] [phone] Makonahally, Deviprasad, BDS 09/28/2024 8:00 AM EDT Office Visit [facility] [address] [place] [phone] Brainonateddy, Deviprasad, BDS Partially edentulous mandible, unspecified edentulism class (Primary Dx); Partially edentulous maxilla, unspecified edentulism class 09/24/2024 8:00 AM EDT Office Visit [facility] [address] [place] [phone] [place] sol, BDS 09/16/2024 Telephone [facility] [address] [place] [phone] [place] sol, BDS 09/14/2024 8:00 AM EDT Office Visit [facility] [address] [place] [phone] Bay Mcfarlane, BDS 08/25/2024 9:30 AM EST Office Visit [facility] [address] [place] [phone] [place], BDS from Last 3 Months [...] Description 01/28/2025 8:00 AM EDT Office Visit [facility] [address] [place] [address] Liliane Rebolledo [address] [place], [place] [phone] Health Maintenance Due Date Last Done Comments [...] patient's age to complete this topic Meningococcal B Vaccine Aged Out No l onger eligible based on patient's age to complete [...] Health Maintenance Insurance [facility] STANDARD DENT[facility] MEDICAID STAND ADULT
== END 2024-11-06 12:32 | disposition home or self-care (01) ==
LOC: HO.HMCH 11:30
PROVIDERS: PCP Internal Medicine; Visit Provider Internal Medicine
DX: R63.6 Underweight (principal); Z68.1 Body mass index [BMI] 19.9 or less, adult; M48.061 Spinal stenosis, lumbar region without neurogenic claudication; E78.00 Pure hypercholesterolemia, unspecified; K21.9 Gastro-esophageal reflux disease without esophagitis; F41.1 Generalized anxiety disorder; G47.00 Insomnia, unspecified; Z12.11 Encounter for screening for malignant neoplasm of colon; Z53.20 Procedure and treatment not carried out because of patient's decision for unspecified reasons; Z72.0 Tobacco use; R03.0 Elevated blood-pressure reading, without diagnosis of hypertension

== ENCOUNTER → 2024-11-06 11:30 | Outpatient (BNVA) | payer MEDICARE, MEDICAID, SELFPAY | PROVIDERS: PCP Internal Medicine; Visit Provider Internal Medicine | DX: R63.6 Underweight (principal); Z68.1 Body mass index [BMI] 19.9 or less, adult; E78.00 Pure hypercholesterolemia, unspecified; M48.061 Spinal stenosis, lumbar region without neurogenic claudication; K21.9 Gastro-esophageal reflux disease without esophagitis; F41.1 Generalized anxiety disorder; G47.00 Insomnia, unspecified; R03.0 Elevated blood-pressure reading, without diagnosis of hypertension; Z72.0 Tobacco use | CPT/HCPCS: 96127; 99212 ==

== ENCOUNTER → 2024-12-04 10:30 | Outpatient (BNV) | payer MEDICARE, MEDICAID, SELFPAY | PROVIDERS: PCP Internal Medicine; Visit Provider Radiology Diagnostic Radiology | DX: E28.39 Other primary ovarian failure (principal) | CPT/HCPCS: 77080 ==

== ENCOUNTER 2024-12-04 10:35 | Outpatient (REF) | payer MEDICARE, MEDICAID, SELFPAY ==
--- NOTE | ~2024-12-04 | MM_ITS ---
EXAMINATION: DXA BONE DENSITY AXIAL HISTORY: M48.061 - Spinal stenosis, lumbar region without neurogenic claudication TECHNIQUE: Cat Amania Dual energy absorptiometry (DEXA) of the lumbar spine, total left hip, and femoral neck was performed. COMPARISON: There are no prior studies for comparison. FINDINGS: The bone mineral density of the lumbar spine is 1.416, corresponding to a T-score of 1.8, and a Z-score of 3.7. This is indicative of normal bone mineral density. The bone mineral density of the left total hip is 0.838, corresponding to a T-score of -1.4, and a Z-score of 0.1. This is indicative of osteopenia. The bone mineral density of the left femoral neck is 0.954, corresponding to a T-score of -0.6, and a Z-score of 1.1. This is indicative of normal bone mineral density. FRACTURE RISK: The FRAX index suggests a risk of major osteoporotic fracture of 9.3%, and of hip fracture 0.8%. MM/XR DEXA axial skeleton IMPRESSION: Based on bone mineral density, and according to World Health Organization (WHO) criteria, the diagnosis is consistent with osteopenia. All bone density values are in grams per centimeter squared (g/cm2). Statistically, 68% of repeat scans fall within 1 SD (+/- 0.010 g/cm2 for AP spine L1-L4) and 1 SD (+/- 0.012 g/cm2 for femur total) FRAX is a trademark of the [employer]'s [employer] Metabolic Bone Disease, a World Health Organization (WHO) Collaborating Center. Electronically signed by: Sharif Gonzáles MD 12/04/2024 11:32 AM EDT
--- OUTSIDE RECORDS SUMMARY | 2024-12-04 11:38 | XMS_ITS | Clinical Summary ---
Author Organization [employer] [facility] Address [address] 7t [place] [address] Care Team Providers Care Neuro Urologist Name Role Phone Unavailable Primary Care Provider [...] Description 10/20/2024 11:00 AM EDT Office Visit [facility] [address] [place] [phone] Makonateddy, Samanthaprasad, BDS 10/19/2024 8:00 AM EDT Office Visit [facility] [address] [place] [phone] Makonahally, Deviprasad, BDS 09/28/2024 8:00 AM EDT Office Visit [facility] [address] [place] [phone] Brainonateddy, Deviprasad, BDS Partially edentulous mandible, unspecified edentulism class (Primary Dx); Partially edentulous maxilla, unspecified edentulism class 09/24/2024 8:00 AM EDT Office Visit [facility] [address] [place] [phone] Samantha Mcfarlanehernanasia, BDS 09/16/2024 Telephone [facility] [address] [place] [address] [phone] Samantha Mcfarlanehernanasia, BDS 09/14/2024 8:00 AM EDT Office Visit [facility] [address] [place] [phone] MaxxteddySamanthageorgina BDLady from Last 3 Months Social History Tobacco [...] Description 01/28/2025 8:00 AM EDT Office Visit [facility] [address] [place] [address] Liliane Rebolledo [address] [place], [place] [phone] Health Maintenance Due Date Last Done Comments CT Colonography 1962 Colonoscopy 1962 Colorectal Cancer Screening 1962 Depression Screening 1962 FIT DNA/Cologuard 1962 FIT 1962 FOBT 1962 HIV Screening 1962 Lipid Panel 1962 SDOH Screening 1962 Sigmoidoscopy 1962 Disability Screening 1962 Alcohol/Substance Use Screening 1974 Hepatitis C [...] 01/31/2015, 05/10/2013, 02/12/2012 Dental X-Ray: Bitewings 07/29/2025 07/28/19, 07/23/2023 Tobacco Screening 10/20/2025 10/20/2024 Dental X-Ray: [...] TREATMENT PLANNING Routine 09/14/2024 8:00 AM EDT PROPHYLAXIS - ADULT Routine 07/28/2024 8 :00 AM EST BITEWINGS - 4 RADIOGRAPHIC IMAGES Routine 07/28/2024 8:00 AM EST INTRAORAL - COMPLETE SERIES OF RADIOGRAPHIC IMAGES Routine 07/23/2023 8:00 AM EST COMPREHENSIVE ORAL EVALUATION - NEW OR ESTABLISHED PATIENT Routine 07/23/2023 8:00 AM EST from Last 3 Months or Most Recently Relevant to Health Maintenance Insurance [facility] STANDARD DENTAL-[facility] MEDICAID STAND ADULT [place] [id number]
== END 2024-12-04 10:36 | disposition home or self-care (01) ==
LOC: HO.MAMMO 10:35
PROVIDERS: PCP Internal Medicine; Visit Provider Nurse Practitioner Family
DX: Z13.820 Encounter for screening for osteoporosis (principal); R63.6 Underweight; Z68.1 Body mass index [BMI] 19.9 or less, adult; Z72.0 Tobacco use; M85.88 Other specified disorders of bone density and structure, other site
CPT/HCPCS: 77080

== ENCOUNTER 2025-02-25 08:18 | Outpatient (REF) | payer MEDICARE, MEDICAID, SELFPAY ==
--- OUTSIDE RECORDS SUMMARY | 2025-02-25 08:39 | XMS_ITS | Clinical Summary ---
Author Organization [employer] [facility] Address [address] [facility] [address] 7 [place] [address] Care Team Providers Care Blasting Clay Miner Name Role Phone Unavailable Primary Care Provider [...] Encounters Date Type Department Care Team Description 02/17/2025 Telephone [facility] [address] [place] [phone] Bay Mcfarlane, BDS 02/15/2025 3:00 PM EDT Office Visit [facility] [address] [place] [phone] Bay Mcfarlane, BDS Partially edentulous mandible, unspecified edentulism class (Primary Dx); Partially edentulous maxilla, unspecified edentulism class 01/28/2025 8:00 AM EDT Office Visit [facility] [address] [place] [address] Liliane Rebolledo 01/12/2025 8:00 AM EDT Office Visit [facility] [address] [place] [address] Wilver Agosto DMD 01/08/2025 9:00 AM EDT Office Visit [facility] [address] [place] [address] Wilver Agosto DMD from Last 3 Months Social History Tobacco [...] Sign Reading Time Taken Comments Blood Pressure 110/70 02/15/2025 3:19 PM EDT Pulse 60 01/28/2025 8:08 AM EDT Temperature - - Respiratory Rate - - Oxygen Saturation - - Inhaled Oxygen Concentration - - Weight - - Height - - Body Mass Index - - Plan of Treatment Upcoming Encounters Date Type Department Care Team (Late st Contact Info) Description 08/24/2025 8:00 AM EST Office Visit [facility] [address] [place], [place] [phone] Liliane Rebolledo [address] [place], [place] [phone] Health Maintenance Due Date Last Done Comments [...] Exam 01/22/2024 07/23/2023 COVID-19 Vaccine (3 - season) 2024 03/12/2021, 02/19/2021 DTaP/Tdap/Td Vaccines (2 - Td or Tdap) 01/31/2025 01/31/2015, 05/10/2013, 02/12/2012 Influenza Vaccine (#1) 2025 , 03/27/2016, 05/05/2015 Dental X-Ray: Bitewings 07/29/2025 07/28/2024, 07/23 Dental Prophylaxis 08/01/2025 01/28/2025, 0 07/28/2024, 01/23/2024, Additional history exists Tobacco Screening 02/15/2026 02/15/2025 Dental X-Ray: Full Mouth 07/24/2026 07/23/2023 RSV [...] Procedure Name Priority Date/Time Associated Diagnosis Comments CASE PRESENTATION, DETAILED AND EXTENSIVE TREATMENT PLANNING Routine 02/15/2025 3:00 PM EDT DENTURE IMPRESSION Routine 02/15/2025 3: 00 PM EDT LIMITED ORAL EVALUATION - PROBLEM FOCUSED Routine 02/15/2025 3:00 PM EDT CASE PRESENTATION, DETAILED AND EXTENSIVE TREATMENT PLANNING Routine 01/28/2025 8:00 AM EDT PROPHYLAXIS - ADULT Routine 01/28/2025 8 :00 AM EDT CASE PRESENTATION, DETAILED AND EXTENSIVE TREATMENT PLANNING Routine 01/12/2025 8:00 AM EDT REPAIR RESIN PARTIAL DENTURE BASE, MAX Routine 01/12/2025 8:00 AM EDT NO CHARGE VISIT Routine 01/08/2025 9:00 AM EDT BITEWINGS - 4 RADIOGRAPHIC IMAGES Routine 07/28/2024 8:00 AM EST INTRAORAL - COMPLETE SERIES OF RADIOGRAPHIC IMAGES Routine 07/23/2023 8:00 AM EST COMPREHENSIVE ORAL EVALUATION - NEW OR ESTABLISHED PATIENT Routine 07/23/2023 8:00 AM EST from Last 3 Months or Most Recently Relevant to Health Maintenance Insurance [facility] STANDARD DENTAL-[facility] MEDICAID STAND ADULT
[2025-02-25 11:21] LABS: MANUAL DIFF FLAG NO
[2025-02-25 11:32] LABS: Hematocrit 39.1 % (37.0-47.0); Hemoglobin 13.3 g/dl (12.0-16.0); Imm Gran Abs Auto 0.02 X10*3/uL (0.00-0.03); Imm Gran Pct Auto 0.3 % (0.0-0.4); Lymphocytes Absolute Auto 1.6 X10*3/uL (1.2-4.9); Mean Corpuscular HGB Conc 34.0 g/dl (31.0-35.0); Mean Corpuscular Hemoglobin 31.1 pg (27.0-33.0); Mean Corpuscular Volume 91.6 fL (80.0-98.0); NRBC Abs Auto 0.000 X10*3/uL (0.0-0.012); NRBC Pct Auto 0.0 /100WBC (0.0-0.2); Platelet Count 261 X10*3/uL (160-400); Red Blood Count 4.27 X10*6/uL (4.20-5.50); White Blood Count 6.5 X10*3/uL (4.8-10.8)
[2025-02-25 12:10] LABS: Alanine Aminotransferase 27 U/L (0-31); Albumin Level 4.7 g/dL (3.5-5.0); Alkaline Phosphatase 64 U/L (39-117); Anion Gap 13 (12-20); Aspartate Amino Transferase 22 U/L (5-31); Blood Urea Nitrogen 12 mg/dL (9-16); Calcium 9.3 mg/dL (8.4-10.2); Carbon Dioxide 25 mmol/L (22-29); Chloride 104 mmol/L (96-108); Cholesterol 206 mg/dL (<200); Estimated Glomerular Filt Rate > 60; HDL Cholesterol 60 mg/dL (>40); Potassium 3.8 mmol/L (3.3-5.1); Sodium 138 mmol/L (135-145); Total Protein 7.2 g/dL (6.5-8.0); Triglycerides 81 mg/dL (<150)
[2025-02-25 12:11] LABS: Free T4 (Free Thyroxine) 0.94 ng/dL (0.71-1.85); Thyroid Stimulating Hormone 0.46 uIU/mL (0.32-4.0)
[2025-02-25 12:22] LABS: Folate 12.5 ng/mL (> or = 4.0); Vitamin B12 822 pg/mL (200-900)
== END 2025-02-25 08:19 | disposition home or self-care (01) ==
LOC: HO.WFDLDS 08:18
PROVIDERS: Visit Provider Internal Medicine
DX: E78.00 Pure hypercholesterolemia, unspecified (principal)
CPT/HCPCS: 36415; 80053; 80061; 82306; 82607; 82746; 84439; 84443; 85025

== ENCOUNTER 2025-03-09 08:29 | Outpatient (AMB) | payer MEDICARE, MEDICAID, SELFPAY ==
[2025-03-09 08:31] VITALS: BP 126/78; PULSE 71; TEMP 36.2; O2SAT 97; BMI 16.6
--- NOTE | 2025-03-09 08:31 | MHC.PC.OV ---
Vital Signs 03/09/25 08:31 Height 5 ft 6 in Weight 103 lb BMI 16.6 BP 126/78 Blood Pressure Location Lt brachial Position Sitting Pulse 71 Pulse Source Pulse Oximeter Temp 97.1 F Temp Source Temporal Artery Scan Pulse Oximetry (%) 97 Oxygen Delivery Method Room Air Intake Visit Reasons: MICHELLE, CLBP Allergies oxycodone (From PERCOCET) Allergy (Unknown, Verified 03/09/25 08:34) RASH Sulfa (Sulfonamide Antibiotics) (SULFA (SULFONAMIDE ANTIBIOTICS)) Allergy (Unknown, Verified 03/09/25 08:34) RASH clindamycin Allergy (Verified 03/09/25 08:34) Rash tramadol Adverse Reaction (Intermediate, Unverified 03/09/25 08:44) seizure Medication List - Last Reconciled 03/09/25 by Scot Vega MD biotin 1 mg PO DAILY compress.stocking,knee,reg,med As directed esomeprazole magnesium 40 mg PO DAILY ibuprofen 200 mg PO Q6H PRN lidocaine 5% 1 appl topical TID PRN lorazepam 1 mg PO TID PRN [lumbar pillow As directed] Tobacco use date assessed: 03/09/25 Dental Screening Dental Screen Date: 03/09/25 Did you have a dental visit in the last 12 months?: Yes Did you have a dental problem in the last 6 months where you did not have access to dental care?: No Was dental information given to patient?: Patient has dentist HPI MICHELLE, CLBP HPI Details discussed about low back pain- took ibu 1200/ day PFSH Medical History Nicotine dependence, cigarettes, uncomplicated Anxiety Mild depression Cough Chronic GERD Surgical History History of excision of lesion H/O breast biopsy Family History Father Myocardial infarction Mother No problems noted. Family/Other Colon cancer Breast cancer Paternal Aunt Breast cancer Sister Colon cancer Other Uterine cancer Social History Housing: Apartment Alcohol intake: never Patient Tobacco Use Status: Current everyday Tobacco user Tobacco use type: Cigarette Cigarette Packs Per Day: 0.5 Cigarettes Per Day: 10 e-Cigarette/Vaping Use: Never Used Second Hand Smoke Exposure: Yes service: No Current occupational status: employed Current occupational exposures/hazards: No Cognitive needs: No Hearing needs: No Vision needs: Yes (glasses) Questionnaire PHQ-9 Over the last 2 weeks, how often have you been bothered by any of the following problems? 1. Little interest or pleasure in doing things: several days 2. Feeling down, depressed, or hopeless: several days 3. Trouble falling or staying asleep, or sleeping too much: several days 4. Feeling tired or having little energy: several days 5. Poor appetite or overeating: not at all 6. Feeling bad about yourself - or that you are a failure or have let yourself or your family down: several days 7. Trouble concentrating on things, such as reading the newspaper or watching television: not at all 8. Moving or speaking so slowly that other people could have noticed. Or the opposite - being so fidgety or restless that you have been moving around a lot more than usual: several days 9. Thoughts that you would be better off or of hurting yourself in some way: not at all Total score: 6 Source: Developed by Drs. Sharif Keating, Kelly Torres, Hussein Britton and colleagues, with an educational nancie from [employer] Thrive Questionnaire Date Thrive assessed: 11/04/24 I am a: Patient What is your living situation today?: I have a steady place to live Within the past 12 months, did the food you bought not last and you didn't have the money to get more?: Sometimes True Within the past 12 months, did you worry whether your food would run out before you got money to buy more?: Sometimes True Do you have trouble paying for medicines?: I choose not to answer this question Do you have trouble getting transportation to medical appointments?: Yes Do you have trouble paying your heating and electricity bill?: I choose not to answer this question Do you have trouble taking care of your child, family member or friend?: I choose not to answer this question Do you have trouble with day-to-day activities such as bathing, preparing meals, shopping, managing finances, etc.?: I choose not to answer this question Are you currently unemployed and looking for a job?: I choose not to answer this question Are you interested in more education?: I choose not to answer this question Please select the resources that you would like help with: None Currently or been in a relationship where the following occur: I choose not to answer THRIVE Score: 3 AUDIT C Alcohol Use Questionnaire (AUDIT-C) 1. How often do you have a drink containing alcohol?: Never 3. How often do you have six or more drinks on one occasion?: Never Total Score: 0 MICHELLE-7 AMB Questionnaire MICHELLE-7 Date MICHELLE - 7 assessed: 11/06/24 Feeling nervous, anxious, or on edge: 3 = Nearly every day Not being able to stop or control worryin = Nearly every day Worrying too much about different things: 3 = Nearly every day Trouble relaxin = Nearly every day Being so restless that it is hard to sit still: 1 = Several days Becoming easily annoyed or irritable: 1 = Several days Feeling afraid as if something awful might happen: 1 = Several days Total MICHELLE-7 score (0-4 normal; 5-9 mild; 10-14 moderate; 15-21 severe): 15 Source: Developed by Drs. Sharif Keating, Kelly Torres, Hussein Britton and colleagues, with an educational nancie from [employer] Physical exam (Primary Care) Vital Signs: Last Vital Signs Temp 97.1 F 03/09/25 08:31 Pulse 71 03/09/25 08:31 BP 126/78 03/09/25 08:31 Pulse Ox 97 03/09/25 08:31 Oxygen Delivery Method Room Air 03/09/25 08:31 BMI result Body Mass Index 16.6 Tobacco/Smoking Status: Tobacco use Status Tobacco use date assessed 03/09/25 03/09/25 08:36 Patient Tobacco Use Status Current everyday Tobacco 03/09/25 08:36 Tobacco use type Cigarette 03/09/25 08:36 e-Cigarette/Vaping Use Never Used 03/09/25 08:36 PHQ-9: PHQ-9 Score PHQ-9: Total score 6 03/09/25 08:49 Thrive Assessment: Date of Thrive Assessment Date Thrive assessed 11/04/24 03/09/25 08:36 Currently or been in a relationship where the following occur: I choose not to answer Const General: alert; No acute distress Eyes Conjunctivae: conjunctivae normal Resp Auscultation: clear to auscultation bilaterally Cardio Rate: regular rate Rhythm: regular rhythm GI Inspection: Yes normal to inspection Extrem General: Yes normal to inspection and No edema Coding Level of Care Code Est Pt Level 4 (69918) Complex EM visit Add On G2211 Diagnoses Seizure disorder G40.909 Underweight with body mass index (BMI) less than 18.5 R63.6; Z68.1 Chronic GERD K21.9 Low back pain M54.50 Nicotine dependence, cigarettes, uncomplicated F17.210 Osteopenia M85.80 Assessment & Plan Assessment & Plan (1) Seizure disorder: Comment: provoked TRAMADOL Code(s): G40.909 - Epilepsy, unspecified, not intractable, without status epilepticus Category: Medical Plan: Provoked, patient has been seen by Neurology, stay away from tramadol advised to not drive for 6 months (2) Underweight with body mass index (BMI) less than 18.5: Code(s): R63.6 - Underweight; Z68.1 - Body mass index [BMI] 19.9 or less, adult Category: Medical Plan: Discussed about nutrition evaluation (3) Chronic GERD: Code(s): K21.9 - Gastro-esophageal reflux disease without esophagitis Category: Medical Plan: Avoid the foods that causes that usually spicy foods, tomato products, juices, coffee, soda and foods that your sensitive to. After eating do not lie down, allow 3-4 hours before in lie down. And keep the head of bed above 30 degrees to avoid the acid from going up., advised to stop smoking! (4) Low back pain: Code(s): M54.50 - Low back pain, unspecified Category: Medical Plan: With the problem of oxycodone and tramadol, will advised to see pain management (5) Nicotine dependence, cigarettes, uncomplicated: Code(s): F17.210 - Nicotine dependence, cigarettes, uncomplicated Category: Medical Plan: Patient is strongly advised to stop smoking. (6) Osteopenia: Comment: 11/2024 Code(s): M85.80 - Other specified disorders of bone density and structure, unspecified site Category: Medical Plan: Discussed about bone density, calcium and vitamin-D and and treatment Plan History of Present Illness The patient is a 64-year-old female presenting for a follow-up visit. She has a history of Gastroesophageal Reflux Disease (GERD), lumbar disc disease with radiculopathy and spinal stenosis, hypercholesterolemia, and generalized anxiety disorder. The patient has a significant history of alcohol use disorder with withdrawal seizures. She was seen in the emergency room in January with altered breathing and shaking consistent with a seizure, followed by postictal confusion. She was prescribed Keppra and Depakote at that time. Laboratory results from that visit showed a sodium level of 126, chloride of 90, and a negative ethanol test. The EEG was unremarkable, and the patient tested positive for cannabinoids and benzodiazepines. The overall diagnosis given was a provoked seizure. The patient also has a history of a syncopal episode in November 2023, for which she was advised to get a Holter monitor but left against medical advice. Health Maintenance Social History - Substance use: Smoker and significant alcohol use disorder with withdrawal seizures. Review of Systems Physical Exam Results - Labs: Sodium 126, Chloride 90, Ethanol negative. - Tests: EEG unremarkable. - Diagnostics: Positive for cannabinoids and benzodiazepines. Plan Patient was informed and verbally consented to the use of an ambient scribe for clinic note documentation during this visit. 1. Alcohol Use Disorder With Withdrawal Seizures The patient has a significant history of alcohol use disorder with withdrawal seizures. She was seen in the emergency room in January with altered breathing and shaking consistent with a seizure, followed by postictal confusion. She was prescribed Keppra and Depakote at that time. 2. Provoked Seizure The overall diagnosis given was a provoked seizure. The patient was advised to stop tramadol and deferred anti-seizure medication due to her feeding from alcohol. 3. Syncope The patient also has a history of a syncopal episode in November 2023, for which she was advised to get a Holter monitor but left against medical advice. Discussion Notes Patient Instructions - Stop taking tramadol as advised. Orders: Orders MM tomosynthesis screening BI Today M48.061 - Spinal stenosis, lumbar region without neurogenic claudication, Z12.31 - Encounter for screening mammogram for malignant neoplasm of breast Medications: New cyclobenzaprine 5 mg PO TID PRN 60 tabs 0RF muscle spasm M48.061 - Spinal stenosis, lumbar region without neurogenic claudication gabapentin 100 mg PO BEDTIME 30 caps 1RF M48.061 - Spinal stenosis, lumbar region without neurogenic claudication
--- OUTSIDE RECORDS SUMMARY | 2025-03-09 10:07 | XMS_ITS | Clinical Summary ---
Author Organization [employer] [facility] Address [address] [facility] 7 [place] [address] Care Team Providers Care Program Mgr Name Role Phone Unavailable Primary Care Provider [...] Encounters Date Type Department Care Team Description 03/03/2025 10:30 AM EDT Office Visit [facility] [address] [place] [phone] Makonateddy, Samanthaprasad, BDS 02/17/2025 Telephone [facility] [address] [place] [phone] Makonateddy, Deviprasad, BDS 02/15/2025 3:00 PM EDT Office Visit [facility] [address] [place] [phone] Makonateddy, Deviprasad, BDS Partially edentulous mandible, unspecified edentulism class (Primary Dx); Partially edentulous maxilla, unspecified edentulism class 01/28/2025 8:00 AM EDT Office Visit [facility] [address] [place] [address] Liliane Rebolledo 01/12/2025 8:00 AM EDT Office Visit [facility] [address] [place] [address] Wilver Agosto DMD 01/08/2025 9:00 AM EDT Office Visit [facility] [address] [place] [address] Wilver Agosto DMD from Last 3 Months [...] Sign Reading Time Taken Comments Blood Pressure 112/68 03/03/2025 10:43 AM EDT Pulse 60 01/28/2025 8:08 AM EDT Temperature - - Respiratory Rate - - Oxygen Saturation - - Inhaled Oxygen Concentration - - Weight - - Height - - Body Mass Index - - Plan of Treatment Upcoming Encounters Date Type Department Care Team (Late st Contact Info) Description 08/24/2025 8:00 AM EST Office Visit [facility] [address] [place] [address] Liliane Rebolledo [address] [place] [address] Health Maintenance Due Date Last Done Comments [...] 2) 2012 Dental Oral Exam 01/22/2024 07/23/2023 DTaP/Tdap/Td Vaccines (2 - Td or Tdap) 01/31/2025 01/31/2015, 05/10/2013, 02/12/2012 COVID-19 Vaccine (3 - season) 2025 03/12/2021, 02/19/2021 Influenza Vaccine (#1) 2025 , 03/27/2016, 05/05/2015 Dental X-Ray: Bitewings 07/29/2025 07/28/2024, 07/23 Dental Prophylaxis 08/01/2025 01/28/2025, 0 07/28/2024, 01/23/2024, Additional history exists Tobacco Screening 03/03/2026 03/03/2025 Dental X-Ray: Full Mouth 07/24/2026 07/23/2023 RSV [...] PRESENTATION, DETAILED AND EXTENSIVE TREATMENT PLANNING Routine 03/03/2025 10:30 AM EDT LIMITED ORAL EVALUATION - PROBLEM FOCUSED Routine 03/03/2025 10:30 AM EDT CASE PRESENTATION, DETAILED AND EXTENSIVE [...] Most Recently Relevant to Health Maintenance Insurance [facility] STANDARD DENTAL[facility] STAND ADULT
== END 2025-03-09 09:09 | disposition home or self-care (01) ==
LOC: HO.HMCH 08:30
PROVIDERS: PCP Internal Medicine; Visit Provider Internal Medicine
DX: G40.909 Epilepsy, unspecified, not intractable, without status epilepticus (principal); R63.6 Underweight; Z68.1 Body mass index [BMI] 19.9 or less, adult; K21.9 Gastro-esophageal reflux disease without esophagitis; M54.50 Low back pain, unspecified; F17.210 Nicotine dependence, cigarettes, uncomplicated; M85.80 Other specified disorders of bone density and structure, unspecified site

== ENCOUNTER → 2025-03-09 08:29 | Outpatient (BNVA) | payer MEDICARE, MEDICAID, SELFPAY | PROVIDERS: PCP Internal Medicine; Visit Provider Internal Medicine | DX: K21.9 Gastro-esophageal reflux disease without esophagitis (principal); M48.061 Spinal stenosis, lumbar region without neurogenic claudication; G40.909 Epilepsy, unspecified, not intractable, without status epilepticus; R63.6 Underweight; M54.50 Low back pain, unspecified; F17.210 Nicotine dependence, cigarettes, uncomplicated; M85.80 Other specified disorders of bone density and structure, unspecified site; R55 Syncope and collapse; Z68.1 Body mass index [BMI] 19.9 or less, adult | CPT/HCPCS: 96127; 99212 ==

== ENCOUNTER 2025-04-02 11:03 | Outpatient (AMB) | payer MEDICARE, MEDICAID, SELFPAY ==
--- NOTE | 2025-04-02 08:03 | A.OFFVIS_ITS ---
Intake Visit Reasons: Current Smoker Allergies oxycodone (From PERCOCET) Allergy (Unknown, Verified 03/09/25 08:34) RASH Sulfa (Sulfonamide Antibiotics) (SULFA (SULFONAMIDE ANTIBIOTICS)) Allergy (Unknown, Verified 03/09/25 08:34) RASH clindamycin Allergy (Verified 03/09/25 08:34) Rash tramadol Adverse Reaction (Intermediate, Unverified 03/09/25 08:44) seizure HPI HPI Current Smoker: Details: Initial visit for this 64yo smoker with a 20+PYH. Patient started smoking at age 23 for 41 years at 1/2ppd. . Reports marijuana use once a week. Reports second hand smoke exposure around family. Denies exposure to chemicals or substances like asbestos. . Denies known family history of lung cancer. Denies personal history of cancers. Denies chest CT in last year. . Denies recent travel outside the [place]. Denies recent respiratory illness or recent hospitalization for respiratory issues. Denies testing positive for COVID. Admits receiving COVID Vaccine. . Denies fever, chills, new/worsening cough, hemoptysis, hoarseness or dysphagia. Denies significant chest pain, significant dyspnea or unintentional weight loss. Patient Lung Cancer Screening Questionnaire reviewed with patient by provider. . Shared Decision Making Completed. Patient meets criteria. Discussed in detail with patient, the risk vs benefit of LDCT screening. Patient consents to proceed with scan. Discussed smoking cessation. [facility] Medical History (Updated 04/02/25 @ 11:13 by Yvonne Cassidy PA-C) Seizure disorder Hypercholesterolemia Mild depression Anxiety Insomnia Osteopenia Spinal stenosis of lumbar region Chronic GERD Cough Nicotine dependence, cigarettes, uncomplicated Surgical History History of excision of lesion H/O breast biopsy Family History Father Myocardial infarction Mother No problems noted. Family/Other Colon cancer Breast cancer Paternal Aunt Breast cancer Sister Colon cancer Other Uterine cancer Social History (Updated 04/02/25 @ 11:13 by Yvonne Cassidy PA-C) Housing: Apartment Alcohol intake: never Patient Tobacco Use Status: Current everyday Tobacco user Tobacco use type: Cigarette Cigarette Packs Per Day: 0.5 Cigarettes Per Day: 10 Years Smoked: (onset 23yo, 1/2ppd x 41yrs, 20+PYH) e-Cigarette/Vaping Use: Never Used Second Hand Smoke Exposure: Yes service: No Current occupational status: employed Current occupational exposures/hazards: No Cognitive needs: No Hearing needs: No Vision needs: Yes (glasses) Assessment & Plan Assessment & Plan (1) Nicotine dependence, cigarettes, uncomplicated: Comment: (onset 23yo, 1/2ppd x 41yrs, 20+PYH) Code(s): F17.210 - Nicotine dependence, cigarettes, uncomplicated Category: Medical Plan: - SDM visit completed today in office. - Patient meets criteria for LDCT for lung cancer screening purposes and is asymptomatic. - Smoking cessation counseling offered. Patients can always call [phone]. - Will arrange for a LDCT scan of the chest for screening purposes at [facility]. - Risks, benefits, and alternatives were discussed in detail and the patient agrees to proceed. - Risks discussed include but are not limited to: radiation exposure, anxiety during testing and while awaiting results, false negatives, false positives and possibility of additional intervention such as further imaging or surgical procedures for benign disease. - Benefits are obviously detection of lung cancer at an early stage which can lead to improved outcomes. - Discussed the importance of screening program compliance with adherence to yearly LDCT scan as scheduled - or sooner interval scans for personalized screening regimen. - Discussed follow up plan. Our office will send a letter discussing results and if needed set up phone call and office visit based on CT findings. - Patient educated on results categorization and the management decisions for suspicious findings potentially found on the screening LDCT scan. Any patient with a Lung RADS score of 3 or 4 will be reviewed by a multidisciplinary team at [facility] to form a plan of action in regards to scan findings. - If further work up is warranted for a suspicious lung finding this will be followed by the Lung Cancer Screening program in conjunction with the Thoracic Surgery Department at [facility]. - A copy of the office note and LDCT will be sent to the patient's PCP - as well as documentation on any associated further plans of care. - Incidental findings on LDCT are the PCP's responsibility. These findings are indicated with an S finding on the LDCT Assessment. A note discussing the findings will be sent to the PCP who is then responsible for further management. - All questions answered.? Coding Level of Care Code Lung Cancer Screening G0296 Diagnoses Nicotine dependence, cigarettes, uncomplicated F17.210
== END 2025-04-02 15:29 | disposition home or self-care (01) ==
LOC: HO.HPS 11:04
PROVIDERS: PCP Internal Medicine; Referring Provider Internal Medicine; Visit Provider Physician Assistant Medical
DX: F17.210 Nicotine dependence, cigarettes, uncomplicated (principal)
CPT/HCPCS: G0296

== ENCOUNTER 2025-04-02 11:21 | Outpatient (REF) | payer MEDICARE, MEDICAID, SELFPAY ==
--- NOTE | ~2025-04-02 | CT_ITS ---
EXAMINATION: CT LUNG SCREENING CLINICAL HISTORY: F17.210 - Nicotine dependence, cigarettes, uncomplicated. COMPARISON: There are no prior studies available for comparison. TECHNIQUE: Low dose axial images were obtained from the sternal notch to upper abdomen without IV contrast per standard departmental protocol. Sagittal and coronal reformatted images were also obtained and reviewed. One or more of the following techniques was used for dose reduction: Automated exposure control, adjustment of the mA and/or kV according to patient size, use of iterative reconstruction technique. DLP: 40 mGy-cm FINDINGS: Lung Nodules: Mild biapical pleural and parenchymal scarring. A 2 mm left upper lobe nodule axial image 37 series 5. A 3 mm peripheral or subpleural right upper lobe nodule axial image 39 series 5. A 2 mm right lower lobe nodule axial image 72 series 5. A 3 mm right middle lobe nodules axial image 98 and 101 series 5. A 3 mm right middle lobe nodule axial image 96 series 5 probably related to mucous plugging. A 2 mm peripheral or subpleural right lower lobe nodule adjacent to the major fissure axial image 1:15 series 5. A 3 mm calcified peripheral or subpleural left lower lobe nodule axial image 125 series 5. Emphysema: none Coronary Calcification: moderate Aortic Arch Calcification: mild. Replaced right subclavian artery Potentially Significant Incidentals : none Additional Chest Findings: There is no pleural or pericardial effusion. No mediastinal or axillary lymphadenopathy is identified. Visualized Upper Abdomen: The visualized portions of the liver, spleen, and adrenals have an unremarkable unenhanced appearance. Bones Degenerative changes of the spine and mild scoliosis. CT/CT lung screening IMPRESSION: 1. Small pulmonary nodules largest measuring 3 mm. 2. Mild paraseptal emphysema. LUNG-RADS ASSESSMENT: Lung-RADS 2: Benign MANAGEMENT: Continue annual screening with LDCT in 12 months Category S: N/A Electronically signed by: Willa Ospina MD 04/02/2025 04:49 PM EDT
== END 2025-04-02 11:22 | disposition home or self-care (01) ==
LOC: HO.CT 11:21
PROVIDERS: PCP Internal Medicine; Visit Provider Physician Assistant Medical
DX: Z12.2 Encounter for screening for malignant neoplasm of respiratory organs (principal); F17.210 Nicotine dependence, cigarettes, uncomplicated
CPT/HCPCS: 71271; G0296

== ENCOUNTER → 2025-04-02 11:23 | Outpatient (BNV) | payer MEDICARE, MEDICAID, SELFPAY | PROVIDERS: PCP Internal Medicine; Visit Provider Radiology Diagnostic Radiology | DX: F17.210 Nicotine dependence, cigarettes, uncomplicated (principal) | CPT/HCPCS: 71271 ==

== ENCOUNTER 2025-04-28 13:50 | Outpatient (AMB) | payer MEDICARE, MEDICAID, SELFPAY ==
[2025-04-28 13:53] VITALS: BP 122/72; PULSE 83; O2SAT 96; BMI 17.3
--- NOTE | 2025-04-28 13:53 | A.OFFPC_ITS ---
Vital Signs 04/28/25 13:53 Height 5 ft 6 in Weight 107 lb BMI 17.3 BP 122/72 Blood Pressure Location Lt brachial Position Sitting Pulse 83 Pulse Source Pulse Oximeter Pulse Oximetry (%) 96 Oxygen Delivery Method Room Air Intake Visit Reasons: Return to work Note Per Dr. Vega Allergies oxycodone (From PERCOCET) Allergy (Unknown, Verified 04/28/25 13:53) RASH Sulfa (Sulfonamide Antibiotics) (SULFA (SULFONAMIDE ANTIBIOTICS)) Allergy (Unknown, Verified 04/28/25 13:53) RASH clindamycin Allergy (Verified 04/28/25 13:53) Rash tramadol Adverse Reaction (Intermediate, Verified 04/28/25 13:53) seizure Medication List - Last Reconciled 04/28/25 by Scot Vega MD biotin 1 mg PO DAILY compress.stocking,knee,reg,med As directed cyclobenzaprine 5 mg PO TID PRN esomeprazole magnesium 40 mg PO DAILY gabapentin 100 mg PO BEDTIME ibuprofen 200 mg PO Q6H PRN lidocaine 5% 1 appl topical TID PRN lorazepam 1 mg PO TID PRN [lumbar pillow As directed] Tobacco use date assessed: 03/09/25 Dental Screening Dental Screen Date: 03/09/25 [facility] Medical History (Updated 04/02/25 @ 11:13 by Yvonne Cassidy PA-C) Seizure disorder Hypercholesterolemia Mild depression Anxiety Insomnia Osteopenia Spinal stenosis of lumbar region Chronic GERD Cough Nicotine dependence, cigarettes, uncomplicated Surgical History History of excision of lesion H/O breast biopsy Family History Father Myocardial infarction Mother No problems noted. Family/Other Colon cancer Breast cancer Paternal Aunt Breast cancer Sister Colon cancer Other Uterine cancer Social History (Updated 04/02/25 @ 11:13 by Yvonne Cassidy PA-C) Housing: Apartment Alcohol intake: never Patient Tobacco Use Status: Current everyday Tobacco user Tobacco use type: Cigarette Cigarette Packs Per Day: 0.5 Cigarettes Per Day: 10 Years Smoked: (onset 23yo, 1/2ppd x 41yrs, 20+PYH) e-Cigarette/Vaping Use: Never Used Second Hand Smoke Exposure: Yes service: No Current occupational status: employed Current occupational exposures/hazards: No Cognitive needs: No Hearing needs: No Vision needs: Yes (glasses) Questionnaire Thrive Questionnaire Date Thrive assessed: 11/04/24 I am a: Patient What is your living situation today?: I have a steady place to live Within the past 12 months, did the food you bought not last and you didn't have the money to get more?: Sometimes True Within the past 12 months, did you worry whether your food would run out before you got money to buy more?: Sometimes True Do you have trouble paying for medicines?: I choose not to answer this question Do you have trouble getting transportation to medical appointments?: Yes Do you have trouble paying your heating and electricity bill?: I choose not to answer this question Do you have trouble taking care of your child, family member or friend?: I choose not to answer this question Do you have trouble with day-to-day activities such as bathing, preparing meals, shopping, managing finances, etc.?: I choose not to answer this question Are you currently unemployed and looking for a job?: I choose not to answer this question Are you interested in more education?: I choose not to answer this question Please select the resources that you would like help with: None Currently or been in a relationship where the following occur: I choose not to answer THRIVE Score: 3 MICHELLE-7 AMB Questionnaire MICHELLE-7 Date MICHELLE - 7 assessed: 11/06/24 Source: Developed by Drs. Sharif Keating, Kelly Torres, Hussein Britton and colleagues, with an educational nancie from [employer]. Physical exam (Primary Care) Vital Signs: Last Vital Signs Pulse 83 04/28/25 13:53 BP 122/72 04/28/25 13:53 Pulse Ox 96 04/28/25 13:53 Oxygen Delivery Method Room Air 04/28/25 13:53 BMI result Body Mass Index 17.3 Tobacco/Smoking Status: Tobacco use Status Tobacco use date assessed 03/09/25 04/28/25 13:56 Patient Tobacco Use Status Current everyday Tobacco 04/28/25 13:56 Tobacco use type Cigarette 04/28/25 13:56 e-Cigarette/Vaping Use Never Used 04/28/25 13:56 Thrive Assessment: Date of Thrive Assessment Date Thrive assessed 11/04/24 04/28/25 13:56 Currently or been in a relationship where the following occur: I choose not to answer Coding Level of Care Code Est Pt Level 4 (50067) Diagnoses Seizure disorder G40.909 Spinal stenosis of lumbar region M48.061 Chronic GERD K21.9 Generalized anxiety disorder F41.1 Assessment & Plan Assessment & Plan (1) Seizure disorder: Comment: provoked TRAMADOL Code(s): G40.909 - Epilepsy, unspecified, not intractable, without status epilepticus Category: Medical Plan: Received neurology notes and with a combination of medication of tramadol with Benadryl and Ativan looking to be more causative of seizures. [place] law though no driving for 6 months. January 2025 to July 2025 (2) Spinal stenosis of lumbar region: Comment: L4-L5 and L5-S1 Code(s): M48.061 - Spinal stenosis, lumbar region without neurogenic claudication Category: Medical Plan: Patient taking anti-inflammatory ibuprofen. Question keeping well hydrated as well as with food. (3) Chronic GERD: Code(s): K21.9 - Gastro-esophageal reflux disease without esophagitis Category: Medical Plan: Avoid the foods that causes that usually spicy foods, tomato products, juices, coffee, soda and foods that your sensitive to. After eating do not lie down, allow 3-4 hours before in lie down. And keep the head of bed above 30 degrees to avoid the acid from going up. (4) Generalized anxiety disorder: Code(s): F41.1 - Generalized anxiety disorder Category: Medical Plan: Patient on lorazepam as needed discussed about counseling also. Plan History of Present Illness The patient is a 64-year-old female presenting for a follow-up visit. Her medical history is significant for GERD, chronic low back pain with degenerative scoliosis, hypercholesterolemia, generalized anxiety disorder, and tobacco use. She has a history of a seizure disorder, which was provoked by tramadol. She was given tramadol in December, stopped taking it, and then retried it in January, which resulted in a seizure. The patient was seen by neurology for this condition in February, which is now considered in remission and is managed with carbamazepine and Depakote. A CT scan of the chest for lung cancer screening in March 2025 revealed small pulmonary nodules, the largest being 3 mm, and emphysema. She follows up with a cardiac technologist and was last seen in March. Other history includes osteopenia, with a last bone density scan in November 2024. Her last blood work on February 25 showed a normal blood count, electrolytes, renal function, blood sugar, liver function, vitamin B12, vitamin D, folic acid, and thyroid levels, with an improvement in her elevated cholesterol compared to the previous year. Health Maintenance - Lung cancer screening: A CT of the chest was performed in March 2025, which showed small pulmonary nodules (3 mm largest) and emphysema. - Bone density: The patient has a history of osteopenia, and her last bone density scan was in November 2024. - Laboratory studies: Blood work from February 25 was reviewed, showing a normal blood count, electrolytes, renal function, blood sugar, liver function, B12, vitamin D, folic acid, and thyroid levels, with improved but still elevated cholesterol. Social History - Tobacco Use: The patient is a smoker. Review of Systems Physical Exam Results - Labs (February 25): Blood count, electrolytes, renal function, blood sugar, liver function, B12, vitamin D, folic acid, and thyroid levels were all within normal limits. - Cholesterol (February 25): Noted to be elevated, but improved compared to the prior year. - Other Labs: Chloride was 90. - Urine Drug Screen: Positive for benzodiazepines. - Imaging (CT Chest, March 2025): Showed small pulmonary nodules (3 mm largest) and emphysema. - Procedures (Bone Density Scan, November 2024): Findings consistent with osteopenia. Plan Patient was informed and verbally consented to the use of an ambient scribe for clinic note documentation during this visit. Discussion Notes Patient Instructions Medications: Changed From ibuprofen 200 mg PO Q6H PRN 30 tabs 0RF pain M51.16 - Intervertebral disc disorders with radiculopathy, lumbar region To ibuprofen 400 mg PO Q6H PRN 60 tabs 0RF pain M51.16 - Intervertebral disc disorders with radiculopathy, lumbar region
--- OUTSIDE RECORDS SUMMARY | 2025-04-28 16:58 | XMS_ITS | Clinical Summary ---
Author Organization [employer] [facility] Address [address] [place] [address] Care Team Providers Care Administrator Health Care Facility Name Role Phone Unavailable Primary Care Provider [...] Description 03/03/2025 10:30 AM EDT Office Visit [facility] [address] [place] [id number] Makonateddy, Samanthaprasad, BDS 02/17/2025 Telephone [facility] [address] [place] [phone] Makonateddy, Deviprasad, BDS 02/15/2025 3:00 PM EDT Office Visit [facility] [address] [place] [phone] Makonateddy, Deviprasad, BDS Partially edentulous mandible, unspecified edentulism class (Primary Dx); Partially edentulous maxilla, unspecified edentulism class 01/28/2025 8:00 AM EDT Office Visit [facility] [address] [place] [address] Liliane Rebolledo from Last 3 Months Social [...] Team (Late st Contact Info) Description 08/24/2025 9:30 AM EST Office Visit [facility] [address] [place] [address] Jeronimo Patiño Health Maintenance Due Date Last Done Comments [...] Cancer Screening 1992 HPV/Cotest 1992 Mammogram 2002 Dental Oral Exam 01/22/2024 07/23/2023 DTaP/Tdap/Td Vaccines (2 - Td or Tdap) 01/31/2025 01/31/2015, 05/10/2013, 02/12/2012 COVID-19 Vaccine ( - season) 2025 03/12/2021, 02/19/2021 Influenza Vaccine (#1) 2025 , 03/27/2016, 05/05/2015 Zoster Vaccines (2 of 2) 05/05/2025 03/10/2025 Dental X-Ray: Bitewings 07/29/2025 07/28/2024, 07/23 Dental [...] ADULT Routine 01/28/2025 8 :00 AM EDT BITEWINGS - 4 RADIOGRAPHIC IMAGES Routine 07/28/2024 8:00 AM EST INTRAORAL - COMPLETE SERIES OF RADIOGRAPHIC IMAGES Routine 07/23/2023 8:00 AM EST COMPREHENSIVE ORAL EVALUATION - NEW OR ESTABLISHED PATIENT Routine 07/23/2023 8:00 AM EST from Last 3 Months or Most Recently Relevant to Health Maintenance Insurance [facility] STANDARD DENTAL-[facility] MEDICAID STAND ADULT
== END 2025-04-28 14:47 | disposition home or self-care (01) ==
LOC: HO.HMCH 13:51
PROVIDERS: PCP Internal Medicine; Visit Provider Internal Medicine
DX: G40.909 Epilepsy, unspecified, not intractable, without status epilepticus (principal); M48.061 Spinal stenosis, lumbar region without neurogenic claudication; K21.9 Gastro-esophageal reflux disease without esophagitis; F41.1 Generalized anxiety disorder

== ENCOUNTER → 2025-04-28 13:50 | Outpatient (BNVA) | payer MEDICARE, MEDICAID, SELFPAY | PROVIDERS: PCP Internal Medicine; Visit Provider Internal Medicine | DX: G40.909 Epilepsy, unspecified, not intractable, without status epilepticus (principal); M48.061 Spinal stenosis, lumbar region without neurogenic claudication; K21.9 Gastro-esophageal reflux disease without esophagitis; F41.1 Generalized anxiety disorder | CPT/HCPCS: 99212 ==

== ENCOUNTER 2025-04-29 07:39 | Outpatient (REF) | payer MEDICARE, MEDICAID, SELFPAY ==
--- OUTSIDE RECORDS SUMMARY | 2025-04-29 07:43 | XMS_ITS | Clinical Summary ---
Author Organization [employer] [facility] Address [address] [place] [address] Care Team Providers Care Blasting Contract Man Name Role Phone Unavailable Primary Care Provider [...] Description 03/03/2025 10:30 AM EDT Office Visit [facility] [address] [place] [phone] Makonateddy, Samanthaprasad, BDS 02/17/2025 Telephone [facility] [address] [place] [phone] Makonateddy, Deviprasad, BDS 02/15/2025 3:00 PM EDT Office Visit [facility] [address] [place] [phone] Makonateddy, Deviprasad, BDS Partially edentulous mandible, unspecified edentulism class (Primary Dx); Partially edentulous maxilla, unspecified edentulism class 01/28/2025 8:00 AM EDT Office Visit [facility] [address] [place] [address] Liliane Rebolledo from Last 3 Months Social [...] Description 08/24/2025 9:30 AM EST Office Visit [facility] [address] [place] [address] Jeronimo Patiño Health Maintenance Due Date Last [...] Most Recently Relevant to Health Maintenance Insurance [facility] STANDARD DENT[facility] MEDICAID STAND ADULT
== END 2025-04-29 07:40 | disposition home or self-care (01) ==
LOC: HO.MAMMO 07:39
PROVIDERS: PCP Internal Medicine; Visit Provider Internal Medicine
DX: Z12.31 Encounter for screening mammogram for malignant neoplasm of breast (principal)
CPT/HCPCS: 77063; 77067

== ENCOUNTER → 2025-04-29 07:45 | Outpatient (BNV) | payer MEDICARE, MEDICAID, SELFPAY | PROVIDERS: PCP Internal Medicine; Visit Provider Internal Medicine | DX: Z12.31 Encounter for screening mammogram for malignant neoplasm of breast (principal) | CPT/HCPCS: 77063; 77067 ==